=== PATIENT | female | born 1935 | race Caucasian/White ===

== ENCOUNTER 2017-07-13 19:50 | Inpatient (IN) | payer MEDICARE, OTHER ==
[~2017-07-13] VITALS: Ht 165.1 cm; Wt 78.3 kg
[~2017-07-13 19:50] MED LIST: AGGRENOX (D1 CAPSULE PO; AMIODARONE 200200 MG PO; COREG25 M1 PO; CORGARD40 MG PO; FISH OIL CONCEN1 SGL PO; FUROCOT40 MG PO; GLIPIZIDE 5MG TA5 MG PO; HYDRALAZINE HC100 MG PO; JANUMET 500 MG-1 TAB PO; LEVAQUIN500 MG PO; LEVOTHYROXINE0.15 MG PO; LIPITOR80 M1 PO; LISINOPRIL/HCTZ1 TA1 PO; LISINOPRIL40 MG PO; LORTAB 5/500 501 TAB PO; NORVASC 10MG. T10 MG PO; PRADAXA150 MG PO; SYNTHROID0.15 MG PO; VERAPAMIL ER240 MG PO; VYTORIN 10 MG-41 TAB PO; ZETIA10 MG PO
[2017-07-13 19:54] VITALS: BP 198/97
--- OUTSIDE RECORDS SUMMARY | 2017-07-13 20:07 | External Medical Summary Rpt | CCD ---
Author Author , DENISE WALKER Address Unknown Phone [email or web address] Purpose Continuity of Care Document - 05-01-2017 through 2016 Problems Code Diagnosis DOS Provider Status N95.9 UNSPECIFIED MENOPAUSAL AND PERIMENOPAU DENISE DISORDER R92.8 OTH ABN AND INCONCLUSIV E FINDINGS ON DX IMAGING OF BREAST
--- OUTSIDE RECORDS SUMMARY | 2017-07-13 20:07 | External Medical Summary Rpt | CCD ---
Author Author , DENISE WALKER Address Unknown Phone [email or web address] Purpose Continuity of Care Document - 05-01-2017 through 2016 Problems Code Diagnosis DOS Provider Status N95.9 UNSPECIFIED MENOPAUSAL AND PERIMENOPAU DENISE DISORDER R92.8 OTH ABN AND INCONCLUSIV E FINDINGS ON DX IMAGING OF BREAST
--- OUTSIDE RECORDS SUMMARY | 2017-07-13 20:07 | External Medical Summary Rpt | CCD ---
Demographics Preferred Language Luxembourgish Marital Status Unknown Hoahaoism Affiliation Unknown Race Unknown Ethnic Group Unknown Author Author , DENISE WALKER Address Unknown Phone Immunization No patient found.
--- OUTSIDE RECORDS SUMMARY | 2017-07-13 20:07 | External Medical Summary Rpt ---
Author Author DENISE Cohen, DENISE [employer] Organization [employer] Address Unknown Phone Unavailable Results Basic metabolic panel in Blood Observa Value Referen Units Interpr Notes Date tion ce etation Range Urea 7 - 18 mg/dL High No Sep 15 nitrogen informati 2017 [Mass/vol on in 12:35 PM ume] in source Serum or data Plasma Calcium 8.5 - mg/dL Normal No Sep 15 [Mass/vol 10.1 informati 2016 ume] in on in 12:35 PM Serum or source Plasma data Chloride 98 - 107 mmoL/L Normal No Sep 15 [Moles/vo informati 2017 lume] in on in 12:35 PM Serum or source Plasma data Carbon 21.0 - mmoL/L Normal No Sep 15 dioxide, 32.0 informati 2017 total on in 12:35 PM [Moles/vo source lume] in data Serum or Plasma Creatinin 0.55 - mg/dL High No Sep 15 e 1.02 informati 2017 [Mass/vol on in 12:35 PM ume] in source Serum or data Plasma Estimated 59- ML/MIN Low REFERENCE Sep 15 RANGE: 2017 glomerula >60 12:35 PM r ML/MIN/1. filtratio 73 SQUARE n rate METERSIf (GF this patient is -A merican, then multiply theresult by 1.210. Glucose 74 - 106 mg/dL High No Sep 15 [Mass/vol informati 2017 ume] in on in 12:35 PM Serum or source Plasma data Potassium 3.5 - 5.1 mmoL/L Normal No Sep 15 informati 2017 [Moles/vo on in 12:35 PM lume] in source Serum or data Plasma Sodium 136 - 145 mmoL/L Normal No Sep 15 [Moles/vo informati 2017 lume] in on in 12:35 PM Serum or source Plasma data Troponin I.cardiac [Mass/volume] in Serum or Plasma Observa Value Referen Units Interpr Notes Date tion ce etation Range Troponin 0.00 - ng/mL High 0.04 - Sep 15 I.cardiac 0.06 0.49 IS 2017 AN 12:35 PM [Mass/vol INDETERMI ume] in NANT Serum or ZONEAnd Plasma can be consisten t with the following diseases: Trauma Criticall y ill patients Qureshi >30% TBSACHF Hypothyro idism Amyloidos isHyperte nsion Myocardit is SepsisHyp otension Rhabdomyo lysis Vital exhaust.P ostop surgery Pulmonary embolism CVARenal failure Acute neurologi richie disease Atrial fib.
--- OUTSIDE RECORDS SUMMARY | 2017-07-13 20:07 | External Medical Summary Rpt ---
Author Author DENISE Cohen, DENISE [employer] Organization [employer] Address Unknown Phone Unavailable [...]
--- OUTSIDE RECORDS SUMMARY | 2017-07-13 20:07 | External Medical Summary Rpt | CCD ---
Demographics Preferred Language Bengali Marital Status Unknown Pentecostal Affiliation Unknown Race Unknown Ethnic Group Unknown Author Author , DENISE WALKER Address Unknown Phone Immunization No patient found.
--- OUTSIDE RECORDS SUMMARY | 2017-07-13 20:07 | External Medical Summary Rpt | CCD ---
Author Author [employer] Organization [employer] Address Unknown Phone Unavailable Purpose Continuity of Care Document - through 2016
[2017-07-13 20:13] LABS: LYMPH # 3.3 K/mm3 (0.7-4.5); LYMPH % 27.4 % (10-50.0)
[2017-07-13 20:33] LABS: BUN 37 mg/dL (7-18)
[2017-07-13 20:35] LABS: GFR (ESTIMATED) 27 ML/MIN (59-)
[2017-07-13 20:39] LABS: HEMOGLOBIN 11.6 g/dL (12.2-16.2)
--- NOTE | 2017-07-13 21:00 | Emergency Room Report ---
See Addendum History of Present Illness Time Seen by 1999 Presenting Problem in Triage Pt arrived:Walked Presenting Problem:PATIENT REPORTS CONSTANT MIDSTERNAL CHESTPAIN THAT GOES TO HER BACK. DENIES N/V. DENIES SOA. PATIENT REPORTS SHE HAS HAD PAIN FOR 2 HOURS. 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 N Clinical Suspician of Infection? N Mental Status: 1 - Regular (Normal Baseline) Sepsis Risk:Possible Sepsis Risk Have you (or family members/close friends) recently traveled outside the [place]? N If Yes, where/when: Have you had exposure to infectious disease within the past month? TB? Other? Specify: Source patient, RN notes reviewed, family, old records Exam Limitations no limitations Comment pt with acute onset of ant chest pain with rad to back which started about 1600 - Cardiac Chest Pain Chest pain indicative of cardiac Yes Timing/Duration 1-3 hours, gone now Severity/Quality moderate, dull Location central Chest Pain Radiation back Activities at Onset none Nitro Today/Relief 0.4 mg x 1, provided by ED, complete relief Aspirin Treatment Today 81 mg x 4, provided by ED Beta kendrick treatment today no beta kendrick taken Cardiac risk factors + cardiovascular disease, Diabetes, + family history, HTN controlled Prior Workup/Intervention CABG-vessel(s) Timing/Duration this evening Severity moderate ALLERGIES Coded Allergies: betamethasone (From CELESTONE) (07/13/17) cefuroxime (From CEFTIN) (07/13/17) dexamethasone (From DECADRON) (07/13/17) enoxaparin (From LOVENOX) (07/13/17) heparin (07/13/17) nitrofurantoin (From MACRODANTIN) (07/13/17) prednisone (07/13/17) Uncoded Allergies: PCN (07/13/17) Home Medications Reported Medications DABIGATRAN ETEXILATE MESYLATE (Pradaxa) 150 MG PO DAILY Carvedilol (Coreg) 25 MG PO BID Furosemide (Furocot) 40 MG PO BID Levothyroxine Sodium (Levothyroxine 0.15MG) 0.15 MG PO DAILY Glipizide (Glipizide 5MG) 5 MG PO DAILY ATORVASTATIN CALCIUM (Lipitor 80MG) 80 MG PO DAILY Amiodarone Hcl (Amiodarone 200MG) 200 MG PO DAILY AMLODIPINE BESYLATE (Norvasc) 5 MG PO DAILY Hydralazine Hcl (Hydralazine) 50 MG PO TID Ezetimibe (Zetia) 10 MG PO DAILY Lisinopril (Lisinopril 40MG) 40 MG PO DAILY History Medical History General CAD? No Angina: Yes [place]: Yes Hypertension? Yes Hyperlipidemia? Yes CHF? No DVT? No PE? No COPD? No Asthma? No Anemia? No GERD? No Gastric ulcers? No GI Bleed? No Hernia? No Thyroid Problems? Yes Hypothyroidism? No CVA? Yes Seizures? No Diabetes? Yes Insulin Dependent: No Insulin Pump: No Home FSBS? Yes Renal Insuffiency? No End Stage Renal Disease? No UTI? No Stones? No BPH? No GB Disease: No Nephritic Syndrome? No Asplenia? No Hepatitis? No Sickle Cell Disease? No Arthritis? No Migraines? No Cataracts? Yes Glaucoma? No MRSA? No HIV? No TB? No Anxiety? No Depression? No Cancer? No More? No Immunization Hx DT/Tetanus > 10 YRS Flu NEVER Pneumonia REFUSES Surgical Hx Previous Surgery?Y APPENDECTOMY RT HAND THUMB SURGERY TONSILLECTOMY R KNEE SURGERY Coronary Artery Bypass Family History Family Hx Diabetes No CAD Yes Hypertension Yes Hyperlipidemia No Cancer No TB No Social History Smoking Hx Smoker: Never Smoker Tobacco: No Alcohol Alcohol: No Drugs none Review of Systems All Other Systems Reviewed and Negative Constitutional denies fever Eyes denies drainage ENT denies: ear discharge, epistaxis, throat pain. Respiratory denies cough, denies shortness of breath, denies wheezing Cardiovascular see HPI, chest pain, denies palpitations, denies syncope Gastrointestinal denies abdominal pain, denies diarrhea, denies vomiting Genitourinary denies: dysuria, frequency, hesitancy, hematuria. Musculoskeletal denies back pain, denies joint pain, denies joint swelling, denies neck pain Skin denies rash Psychiatric/Neurological denies headache, denies seizure Physical Exam Vital Signs Vital Signs Date Time Temp Pulse Resp B/P Pulse O2 O2 Flow FiO2 Ox Delivery Rate 07/13 2256 98.0 85 18 189/76 95 07/13 2200 98.3 85 18 171/78 94 07/139 97 16 144/75 96 07/13 2118 89 16 168/100 94 07/13 2117 16 07/13 2048 98.3 100 20 155/75 93 07/13 1954 97.6 110 20 198/97 99 - WBC >12,000 or <4,000 or 10% bands? 2 or more SIRS Criteria Met? B/P:155/75 MAP:130 Creatinine >2.0? UA output<0.5ml/kg/hr for 2 hrs? Platelet count >100,000? Lactate >2.0mmol/1? INR >1.2 or PTT > than 60 sec? Evidence of Organ Dysfunction? Provider documented clinical suspician of infection? N Sepsis Criteria Count: 2 Sepsis Risk: Possible Sepsis Risk General Appearance no apparent distress Eye Exam - bilateral eye PERRL, bilateral eye EOMI Ear, Nose, Throat normal ENT inspection Neck supple Respiratory Status No: respiratory distress. Lung Sounds bilateral: lungs clear. 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 No Results/Orders Laboratory Tests 07/13/172199: Troponin I 0.15 H 07/13/171954: Lipase 312 07/13/171954: Sodium 141, Potassium 4.0, Chloride 103, Carbon Dioxide 31, BUN 37 H, Creatinine 1.8 H, Estimated Creat Clear 31 L, Estimated GFR (MDRD) 27 L, Glucose 329 H, Calcium 9.8, Total Bilirubin 1.0, AST 17, ALT 16, Alkaline Phosphatase 151 H, Creatine Kinase 32, CK-MB (CK-2) Rel Index 1.6, CK and CKMB Interp < 0.5, Troponin I 0.16 H, Total Protein 7.1, Albumin 4.2, Globulin 2.9, Albumin/Globulin Ratio 1.4, WBC 11.9 H, RBC 4.22, Hgb 11.6 L, Hct 35.9 L, MCV 85.0, RDW 13.4, Plt Count 186, MPV 8.5, Gran % 67.0, Gran # 8.0 H, Lymphocytes % 27.4, Monocytes % 3.8, Eosinophils % 1.4, Basophils % 0.4, Lymphocytes # 3.3, Monocytes # 0.5, Eosinophils # 0.2, Basophils # 0.1, PUBS MCHC 32.5, MCH 27.6 Current Medication Orders Sig/Mike Start time Last Medication Dose Route Stop Time Status Admin Nitroglycerin 1 IN ONCE ONE 07/13 2130 DC 07/13 TP 07/13 Nitroglycerin 0 .STK-MED ONE 07/13 2129 DC .ROUTE Nitroglycerin 0 .STK-MED ONE 07/13 2116 DC SL Nitroglycerin 0.4 MG ONCE ONE 07/13 2115 DC 07/13 SL 07/13 Ondansetron HCl 4 MG ONCE ONE 07/13 2030 DC 07/13 IV 07/13 Ondansetron HCl 0 .STK-MED ONE 07/13 2025 DC .ROUTE Aspirin 324 MG ONCE ONE 07/13 2015 DC 07/13 PO 07/13 2016 2007 Aspirin 0 .STK-MED ONE 07/13 2005 DC .ROUTE Sodium Chloride 10 ML PRN PRN 07/13 2000 AC 07/13 IV 07/14 1958 2007 Orders Procedure Date/time Status TROPONIN I 07/13 2150 Complete LIPASE 07/13 2111 [facility] 07[facility]13 1959 Active ELECTROCARDIOGRAM REQUEST 07/13 1959 Active IV SALINE LOCK 07/13 1959 Active VP LAB 07/13 1959 Active CBC WITH AUTO DIFF 07/13 1959 Complete CARDIAC ENZYMES 07/13 1959 Complete CHEM 12 PROFILE 07/13 1959 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 ST/Twave chgs XRAY/CT/US XRAY/CT/US XRAY chest XR interpretation by reviewed by me Xray Results abnormal (cm) GUERITA Score for N-Stemi/Angina GUERITA N-STEMI SCORE GUERITA N-STEMI SCORE Response Value Age of patient 65 yrs or more 1 Number of risk factors for CAD Presence of 3 or more 1 Prior coronary artery stenosis (seen in angiography) Less than 50% 0 ST-Segment deviation on ECG (>1 min) Absent 0 Prior aspirin intake ASA intake in last 7 days 1 Severe anginal chest pain No or 1 episode in 24h 0 Elevated cardiac markers(CK-MB or troponin) Present 1 Total 4 Risk Stratification 3-4= Medium Risk Patients Departure Departure Time of Disposition 4483 Disposition Still a Patient Clinical Impression Primary Impression: Chest pain Qualifiers: Chest pain type: precordial pain Qualified Code: R07.2 - Precordial pain Secondary Impressions: A-fib Qualifiers: Atrial fibrillation type: chronic Qualified Code: I48.2 - Chronic atrial fibrillation Renal insufficiency Condition STABLE Referrals Roc Grover MD (Family) discussed with dr grover ED Critical Care Critical Care No at [id number]
--- NOTE | 2017-07-13 21:00 | Emergency Room Report ---
See Addendum History of Present Illness Time Seen by 1999 Presenting Problem in Triage Pt arrived:Walked Presenting Problem:PATIENT REPORTS CONSTANT MIDSTERNAL CHESTPAIN THAT GOES TO HER BACK. DENIES N/V. DENIES SOA. PATIENT REPORTS SHE HAS HAD PAIN FOR 2 HOURS. 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 N Clinical Suspician of Infection? N Mental Status: 1 - Regular (Normal Baseline) Sepsis Risk:Possible Sepsis Risk Have you (or family members/close friends) recently traveled outside the [place]? N If Yes, where/when: Have you had exposure to infectious disease within the past month? TB? Other? Specify: Source patient, RN notes reviewed, family, old records Exam Limitations no limitations Comment pt with acute onset of ant chest pain with rad to back which started about 1600 - Cardiac Chest Pain Chest pain indicative of cardiac Yes Timing/Duration 1-3 hours, gone now Severity/Quality moderate, dull Location central Chest Pain Radiation back Activities at Onset none Nitro Today/Relief 0.4 mg x 1, provided by ED, complete relief Aspirin Treatment Today 81 mg x 4, provided by ED Beta kendrick treatment today no beta kendrick taken Cardiac risk factors + cardiovascular disease, Diabetes, + family history, HTN controlled Prior Workup/Intervention CABG-vessel(s) Timing/Duration this evening Severity moderate ALLERGIES Coded Allergies: betamethasone (From CELESTONE) (07/13/17) cefuroxime (From CEFTIN) (07/13/17) dexamethasone (From DECADRON) (07/13/17) enoxaparin (From LOVENOX) (07/13/17) heparin (07/13/17) nitrofurantoin (From MACRODANTIN) (07/13/17) prednisone (07/13/17) Uncoded Allergies: PCN (07/13/17) Home Medications Reported Medications DABIGATRAN ETEXILATE MESYLATE (Pradaxa) 150 MG PO DAILY Carvedilol (Coreg) 25 MG PO BID Furosemide (Furocot) 40 MG PO BID Levothyroxine Sodium (Levothyroxine 0.15MG) 0.15 MG PO DAILY Glipizide (Glipizide 5MG) 5 MG PO DAILY ATORVASTATIN CALCIUM (Lipitor 80MG) 80 MG PO DAILY Amiodarone Hcl (Amiodarone 200MG) 200 MG PO DAILY AMLODIPINE BESYLATE (Norvasc) 5 MG PO DAILY Hydralazine Hcl (Hydralazine) 50 MG PO TID Ezetimibe (Zetia) 10 MG PO DAILY Lisinopril (Lisinopril 40MG) 40 MG PO DAILY History Medical History General CAD? No Angina: Yes [place]: Yes Hypertension? Yes Hyperlipidemia? Yes CHF? No DVT? No PE? No COPD? No Asthma? No Anemia? No GERD? No Gastric ulcers? No GI Bleed? No Hernia? No Thyroid Problems? Yes Hypothyroidism? No CVA? Yes Seizures? No Diabetes? Yes Insulin Dependent: No Insulin Pump: No Home FSBS? Yes Renal Insuffiency? No End Stage Renal Disease? No UTI? No Stones? No BPH? No GB Disease: No Nephritic Syndrome? No Asplenia? No Hepatitis? No Sickle Cell Disease? No Arthritis? No Migraines? No Cataracts? Yes Glaucoma? No MRSA? No HIV? No TB? No Anxiety? No Depression? No Cancer? No More? No Immunization Hx DT/Tetanus > 10 YRS Flu NEVER Pneumonia REFUSES Surgical Hx Previous Surgery?Y APPENDECTOMY RT HAND THUMB SURGERY TONSILLECTOMY R KNEE SURGERY Coronary Artery Bypass Family History Family Hx Diabetes No CAD Yes Hypertension Yes Hyperlipidemia No Cancer No TB No Social History Smoking Hx Smoker: Never Smoker Tobacco: No Alcohol Alcohol: No Drugs none Review of Systems All Other Systems Reviewed and Negative Constitutional denies fever Eyes denies drainage ENT denies: ear discharge, epistaxis, throat pain. Respiratory denies cough, denies shortness of breath, denies wheezing Cardiovascular see HPI, chest pain, denies palpitations, denies syncope Gastrointestinal denies abdominal pain, denies diarrhea, denies vomiting Genitourinary denies: dysuria, frequency, hesitancy, hematuria. Musculoskeletal denies back pain, denies joint pain, denies joint swelling, denies neck pain Skin denies rash Psychiatric/Neurological denies headache, denies seizure Physical Exam Vital Signs Vital Signs Date Time Temp Pulse Resp B/P Pulse O2 O2 Flow FiO2 Ox Delivery Rate 07/13 2256 98.0 85 18 189/76 95 07/13 2200 98.3 85 18 171/78 94 07/139 97 16 144/75 96 07/13 2118 89 16 168/100 94 07/13 2117 16 07/13 2048 98.3 100 20 155/75 93 07/13 1954 97.6 110 20 198/97 99 - WBC >12,000 or <4,000 or 10% bands? 2 or more SIRS Criteria Met? B/P:155/75 MAP:130 Creatinine >2.0? UA output<0.5ml/kg/hr for 2 hrs? Platelet count >100,000? Lactate >2.0mmol/1? INR >1.2 or PTT > than 60 sec? Evidence of Organ Dysfunction? Provider documented clinical suspician of infection? N Sepsis Criteria Count: 2 Sepsis Risk: Possible Sepsis Risk General Appearance no apparent distress Eye Exam - bilateral eye PERRL, bilateral eye EOMI Ear, Nose, Throat normal ENT inspection Neck supple Respiratory Status No: respiratory distress. Lung Sounds bilateral: lungs clear. 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 No Results/Orders Laboratory Tests 07/13/172199: Troponin I 0.15 H 07/13/171954: Lipase 312 07/13/171954: Sodium 141, Potassium 4.0, Chloride 103, Carbon Dioxide 31, BUN 37 H, Creatinine 1.8 H, Estimated Creat Clear 31 L, Estimated GFR (MDRD) 27 L, Glucose 329 H, Calcium 9.8, Total Bilirubin 1.0, AST 17, ALT 16, Alkaline Phosphatase 151 H, Creatine Kinase 32, CK-MB (CK-2) Rel Index 1.6, CK and CKMB Interp < 0.5, Troponin I 0.16 H, Total Protein 7.1, Albumin 4.2, Globulin 2.9, Albumin/Globulin Ratio 1.4, WBC 11.9 H, RBC 4.22, Hgb 11.6 L, Hct 35.9 L, MCV 85.0, RDW 13.4, Plt Count 186, MPV 8.5, Gran % 67.0, Gran # 8.0 H, Lymphocytes % 27.4, Monocytes % 3.8, Eosinophils % 1.4, Basophils % 0.4, Lymphocytes # 3.3, Monocytes # 0.5, Eosinophils # 0.2, Basophils # 0.1, PUBS MCHC 32.5, MCH 27.6 Current Medication Orders Sig/Mike Start time Last Medication Dose Route Stop Time Status Admin Nitroglycerin 1 IN ONCE ONE 07/13 2130 DC 07/13 TP 07/13 Nitroglycerin 0 .STK-MED ONE 07/13 2129 DC .ROUTE Nitroglycerin 0 .STK-MED ONE 07/13 2116 DC SL Nitroglycerin 0.4 MG ONCE ONE 07/13 2115 DC 07/13 SL 07/13 Ondansetron HCl 4 MG ONCE ONE 07/13 2030 DC 07/13 IV 07/13 Ondansetron HCl 0 .STK-MED ONE 07/13 2025 DC .ROUTE Aspirin 324 MG ONCE ONE 07/13 2015 DC 07/13 PO 07/13 2016 2007 Aspirin 0 .STK-MED ONE 07/13 2005 DC .ROUTE Sodium Chloride 10 ML PRN PRN 07/13 2000 AC 07/13 IV 07/14 1958 2007 Orders Procedure Date/time Status TROPONIN I 07/13 2150 Complete LIPASE 07/13 2111 Complete 12 LEAD EKG-[facility] (INITIAL) 07/13 1959 Active ELECTROCARDIOGRAM REQUEST 07/13 1959 Active IV SALINE LOCK 07/13 1959 Active 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 ST/Twave chgs XRAY/CT/US XRAY/CT/US XRAY chest XR interpretation by reviewed by me Xray Results abnormal (cm) GUERITA Score for N-Stemi/Angina GUERITA N-STEMI SCORE GUERITA N-STEMI SCORE Response Value Age of patient 65 yrs or more 1 Number of risk factors for CAD Presence of 3 or more 1 Prior coronary artery stenosis (seen in angiography) Less than 50% 0 ST-Segment deviation on ECG (>1 min) Absent 0 Prior aspirin intake ASA intake in last 7 days 1 Severe anginal chest pain No or 1 episode in 24h 0 Elevated cardiac markers(CK-MB or troponin) Present 1 Total 4 Risk Stratification 3-4= Medium Risk Patients Departure Departure Time of Disposition 9193 Disposition Still a Patient Clinical Impression Primary Impression: Chest pain Qualifiers: Chest pain type: precordial pain Qualified Code: R07.2 - Precordial pain Secondary Impressions: A-fib Qualifiers: Atrial fibrillation type: chronic Qualified Code: I48.2 - Chronic atrial fibrillation Renal insufficiency Condition STABLE Referrals Roc Grover MD (Family) discussed with dr grover ED Critical Care Critical Care No at [phone]
--- NOTE | 2017-07-13 22:25 | RADIOLOGY REPORT PS360 ---
CHEST-PORTABLE Ordering Physician: Can Chambers MD Patient Age: 81 years: Female HISTORY: CPAP portable TECHNIQUE: Chest AP portable COMPARISON : Previous 04/30/2016 PA and lateral chest. Also 2011 PCXR CXR FINDINGS Cardiomegaly.. Sternotomy. Mild chronic changes bilaterally with slight coarsening markings. But no focal infiltrate or pneumonia. No pleural effusion. No pneumothorax. No additional CHF.. Guillermina and mediastinal structures unremarkable. Chest wall unremarkable. IMPRESSION: . Stable chest. Nothing definitely acute Generous cardiomegaly. CABG again noted Mild chronic changes
--- OUTSIDE RECORDS SUMMARY | 2017-07-13 23:12 | External Medical Summary Rpt | CCD ---
Author Author , DENISE WALKER Address Unknown Phone [email or web address] Purpose Continuity of Care Document - 05-01-2017 through 2016 Problems Code Diagnosis DOS Provider Status N95.9 UNSPECIFIED MENOPAUSAL AND PERIMENOPAU DENISE DISORDER R92.8 OTH ABN AND INCONCLUSIV E FINDINGS ON DX IMAGING OF BREAST
--- OUTSIDE RECORDS SUMMARY | 2017-07-13 23:12 | External Medical Summary Rpt | CCD ---
Author Author , DENISE WALKER Address Unknown Phone [email or web address] Purpose Continuity of Care Document - 05-01-2017 through 2016 Problems Code Diagnosis DOS Provider Status N95.9 UNSPECIFIED MENOPAUSAL AND PERIMENOPAU DENISE DISORDER R92.8 OTH ABN AND INCONCLUSIV E FINDINGS ON DX IMAGING OF BREAST
--- OUTSIDE RECORDS SUMMARY | 2017-07-13 23:13 | External Medical Summary Rpt | CCD ---
Demographics Preferred Language Lao Marital Status Unknown Denominational Affiliation Unknown Race Unknown Ethnic Group Unknown Author Author , DENISE WALKER Address Unknown Phone Immunization Unable to retrieve immunization data due to connection failure with Immunization Registry. Please try again later.
--- OUTSIDE RECORDS SUMMARY | 2017-07-13 23:13 | External Medical Summary Rpt | CCD ---
Demographics Preferred Language Wolof Marital Status Unknown Presybeterian Affiliation Unknown Race Unknown Ethnic Group Unknown Author Author , DENISE WALKER Address Unknown Phone Immunization Unable to retrieve immunization data due to connection failure with Immunization Registry. Please try again later.
--- OUTSIDE RECORDS SUMMARY | 2017-07-13 23:14 | External Medical Summary Rpt ---
Author Author DENISE Cohen, DENISE [facility] [employer] Address Unknown Phone Unavailable Results Troponin I.cardiac [Mass/volume] in Serum or Plasma Observa Value Referen Units Interpr Notes Date tion ce etation Range Troponin 0.00 - ng/mL High 0.04 - Jul 13 I.cardiac 0.06 0.49 IS 2017 AN 10:00 PM [Mass/vol INDETERMI ume] in NANT Serum or ZONEAnd Plasma can be consisten t with the following diseases: Trauma Criticall y ill patients Qureshi >30% TBSACHF Hypothyro idism Amyloidos isHyperte nsion Myocardit is SepsisHyp otension Rhabdomyo lysis Vital exhaust.P ostop surgery Pulmonary embolism CVARenal failure Acute neurologi richie disease Atrial fib. Lipase [Enzymatic activity/volume] in Serum or Plasma Observa Value Referen Units Interpr Notes Date tion ce etation Range Lipase 73 - 393 U/L Normal No Jul 13 [Enzymati informati 2016 7:55 c on in PM activity/ source volume] data in Serum or Plasma CBC W Auto Differential panel in Blood Observa Value Referen Units Interpr Notes Date ti ce etation Range Basophils 0 - 0.2 K/MM3 Normal No Jul 13 inform2016 7:55 [#/volume on in PM ] in source Blood by data Automated count Basophils 0.1 - 2.0 % Normal No Jul 13 informati 2016 7:55 leukocyte on in PM s in source Blood by data Automated count Eosinophi 0.0 - 0.4 K/mm3 Normal No Jul 13 ls informati 2016 7:55 [#/volume on in PM ] in source Blood by data Automated count Eosinophi 0.1 - % Normal No Jul 13 ls/ 12.0 informati 2016 7:55 leukocyte on in PM s in source Blood by data Automated count Granulocy 1.8 - 7.8 K/mm3 High No Jul 13 dariusz informati 2016 7:55 [#/volume on in PM ] in source Blood by data Automated count Granulocy 37.0 - % Normal No Jul 13 dariusz/100 80.0 informati 2017 7:55 leukocyte on in PM s in source Blood by data Automated count Hematocri 37.0 - % Low No Jul 13 t [Volume 47.0 informati 2016 7:55 on in PM Fraction] source of Blood data Hemoglobi 12.2 - g/dL Low Jul 13 n 16.2 informati 2017 7:55 [Mass/vol on in PM ume] in source Blood data Lymphocyt 0.7 - 4.5 K/mm3 Normal Jul 13 es informati 2016 7:55 [#/volume on in PM ] in source Unspecifi data ed specimen by Automated count Lymphocyt 10 - 50.0 % Normal No Jul 13 es informati 2016 7:55 [#/volume on in PM ] in source Unspecifi data ed specimen by Automated count Erythrocy 27 - 31.2 pg Normal Jul 13 te mean informati 2016 7:55 corpuscul on in PM ar source hemoglobi data n [Entitic mass] Erythrocy 31.8 - g/dl Normal Jul 13 te mean 35.4 informati 2016 7:55 corpuscul on in PM ar source hemoglobi data n concentra tion [Mass/vol ume] by Automated count Erythrocy 82.2 - fl Normal No Jul 13 te mean 97.8 informati 2016 7:55 corpuscul on in PM ar volume source [Entitic data volume] by Automated count Monocytes 0.1 - 1.0 K/mm3 Normal Jul 13 informati 2016 7:55 [#/volume on in PM ] in source Blood by data Automated count Monocytes 1.7 - 9.3 % Normal No Jul 13 / informati 2016 7:55 leukocyte on in PM s in source Blood by data Automated count Platelet 7.4 - fl Normal No Jul 13 mean 10.4 informati 2017 7:55 volume on in PM [Entitic source volume] data in Blood by Automated count Platelets 142 - 424 K/mm3 Normal Jul 13 informati 2016 7:55 [#/volume on in PM ] in source Blood data Erythrocy 4.2 - 5.4 M/mm3 Normal No Jul 13 dariusz informati 2017 7:55 [#/volume on in PM ] in source Amniotic data fluid Erythrocy 11.5 - % Normal Jul 13 te 17.5 informati 2016 7:55 distribut on in PM ion width source [Entitic data volume] by Automated count Leukocyte 4.8 - K/MM3 High No Jul 13 s 10.8 informati 2017 7:55 [#/volume on in PM ] in source Blood data Basic metabolic panel in Blood Observa Value Referen Units Interpr Notes Date tion ce etation Range Urea 7 - 18 mg/dL High No Sep 15 nitrogen informati 2016 [Mass/vol on in 12:35 PM ume] in [...] mg/dL High No Sep 15 e 1.02 inform2016 [Mass/vol on in 12:35 PM ume] in [...] - 5.1 mmoL/L Normal No Sep 15 inform2016 [Moles/vo on in 12:35 PM lume] in [...]
--- OUTSIDE RECORDS SUMMARY | 2017-07-13 23:14 | External Medical Summary Rpt ---
Author Author DENISE Cohen, DENISE [employer] Organization [employer] Address Unknown Phone Unavailable [...]
[2017-07-14] VITALS (8 sets, daily range): BP systolic 122–155; BP diastolic 63–98
[2017-07-14 06:07] LABS: HEMOGLOBIN 11.2 g/dL (12.2-16.2); LYMPH # 2.9 K/mm3 (0.7-4.5); LYMPH % 17.7 % (10-50.0)
[2017-07-14 06:28] LABS: BUN 35 mg/dL (7-18)
[2017-07-14 06:30] LABS: GFR (ESTIMATED) 33 ML/MIN (59-)
[2017-07-14 08:01] LABS: NEUTROPHILS 77 % (42-76)
--- NOTE | 2017-07-14 08:29 | PHARMACY CLINIC NOTE ---
Patient Demographics Patient Demographics Admission date: 07/14/17 Date: 07/14/17 Time: 0823 Allergies Coded Allergies: betamethasone (From CELESTONE) (07/13/17) cefuroxime (From CEFTIN) (07/13/17) dexamethasone (From DECADRON) (07/13/17) enoxaparin (From LOVENOX) (07/13/17) heparin (07/13/17) nitrofurantoin (From MACRODANTIN) (07/13/17) prednisone (07/13/17) Uncoded Allergies: PCN (07/13/17) HEIGHT- FT: 5 IN: 5.00 K.274 VTE General Information Labs: Laboratory Tests 07/14 07/13 0530 1955 Hematology Hgb (12.2 - 16.2 g/dL) 11.2 L 11.6 L Hct (37.0 - 47.0 %) 34.5 L 35.9 L Plt Count (142 - 424 K/mm3) 174 186 Disclaimer The following section includes nursing documentation that has been pulled in for pharmacy review. Patient's VTE score: 2 Patient's VTE Risk: VERY LOW RISK Clinical trial participant? No VTE prophylaxis [id number] VTE prophylaxis ordered? Yes Type of prophylaxis/treatment: AIDE at 0828
--- NOTE | 2017-07-14 09:38 | HISTORY AND PHYSICAL REPORT ---
See Addendum History and Physical (FCA) Date of admission: 07/14/17 Chief complaint: chest pain History: History of Present Illness: Ms Mercado is an 81 year old female with a history of CAD, T2DM, CVA, HTN, Hypothyroidism, macular degeneration, and atrial fib who presented to [facility] ER with severe right anterior chest and upper abdominal pain. She states the pain started yesterday PM. She did not vomit and has had no diarrhea. She denies SOB. Her heart always skips around with her atrial fib. With evaluation in the ER Troponin's were slight elevated. Pain was releived with NTG. She was admitted for further evaluation and treatment with precordial CP. This AM she remains comfortable without CP and SOB. She has eaten a little breakfast. She slept little. She notes that she has had GERD in the recent past and was given Nexium which she did not take because she had no further problems. Past Medical History: Medical History: CAD? Yes Angina: Yes PA: Yes Hypertension? Yes Hyperlipidemia? Yes CHF? Yes DVT? No PE? No COPD? No Asthma? No Anemia? Yes GERD? No Gastric ulcers? No GI Bleed? No Hernia? No Thyroid Problems? Yes Hypothyroidism? Yes CVA? Yes Seizures? No Diabetes? Yes Insulin Dependent: No Insulin Pump: No Home FSBS? Yes Renal Insuffiency? No UTI? No Stones? No BPH? No GB Disease: No Nephritic Syndrome? No Asplenia? No Hepatitis? No Sickle Cell Disease? No Arthritis? No Migraines? No Cataracts? Yes Glaucoma? No MRSA? No HIV? No TB? No Anxiety? No Depression? No Cancer? No More? No Additional hx: Macular degeneration Atrial fib Surgical history: Previous Surgery?Y APPENDECTOMY RT HAND THUMB SURGERY TONSILLECTOMY R KNEE SURGERY Coronary Artery Bypass Medications: Reported Medications Glipizide (Glipizide 5MG) 5 MG PO BID Hydralazine Hcl (Hydralazine) 100 MG PO TID Lisinopril (Lisinopril 40MG) 40 MG PO DAILY Rivaroxaban (Xarelto) 20 MG PO DAILY Terazosin Hcl (Terazosin) 5 MG PO QHS Colchicine 0.6 MG PO DAILY PRN FERROUS SULFATE (IRON) 65 MG PO DAILY Aspirin (Adult Low Dose Aspirin EC) 81 MG PO DAILY Febuxostat (Uloric) 40 MG PO DAILY LEVOTHYROXINE SOD (Synthroid) 0.1 MG PO DAILY Isosorbide Dinitrate 30 MG PO TID Cyanocobalamin/Folic Acid (Vitamin G25-Jamvu Acid Tablet) 1 EACH PO Carvedilol (Coreg) 25 MG PO BID Furosemide (Furocot) 40 MG PO BID Levothyroxine Sodium (Levothyroxine 0.15MG) 0.15 MG PO DAILY ATORVASTATIN CALCIUM (Lipitor 80MG) 80 MG PO DAILY AMLODIPINE BESYLATE (Norvasc) 5 MG PO DAILY Discontinued Reported Medications DABIGATRAN ETEXILATE MESYLATE (Pradaxa) 150 MG PO DAILY Amiodarone Hcl (Amiodarone 200MG) 200 MG PO DAILY Ezetimibe (Zetia) 10 MG PO DAILY Allergies: Coded Allergies: betamethasone (From CELESTONE) (07/13/17) cefuroxime (From CEFTIN) (07/13/17) dexamethasone (From DECADRON) (07/13/17) enoxaparin (From LOVENOX) (07/13/17) heparin (07/13/17) nitrofurantoin (From MACRODANTIN) (07/13/17) prednisone (07/13/17) Uncoded Allergies: PCN (07/13/17) Family History: Family history: Postive for: CAD, DM. Social History: Smoking Hx Tobacco: No Smoker: Never Smoker Type: N/A Packs/day: N/A Are you exposed to second hand Yes Alcohol: Alcohol: No Hx of Drug Use: Drug Use? No Patient's support system is: excellent Review of Systems: ENT No: ear ache, nasal congestion, sore throat. Cardiovascular Positive for: chest pain, palpitations. No: edema. Respiratory No: shortness of air, non-productive, productive cough (sputum). GI Positive for: GERD, abdominal pain, constipation. No: diarrhea, hematemeis, hematochezia, melena, nausea, vomitting. (female) No: frequency, hematuria. Neurological No: dizziness, headache, seizure, syncope. Musculoskeletal No: extremity pain, extremity swelling, joint pain. Physical Exam: Vital signs: Vital Signs Date Time Temp Pulse Resp B/P Pulse O2 O2 Flow FiO2 Ox Delivery Rate 07/14 0910 97.8 93 20 155/97 97 07/14 0830 97.8 93 20 155/97 97 ROOM AIR 07/14 0432 98.3 111 20 145/63 95 ROOM AIR 07/14 0105 2 07/14 0105 2 07/14 0105 95 ROOM AIR 2 07/14 0105 95 ROOM AIR 07/14 0102 93 07/14 0102 97.8 93 18 150/80 07/14 0102 95 ROOM AIR 07/14 0045 97.8 93 18 150/80 95 ROOM AIR 07/14 0028 98.0 91 18 203/91 98 07/14 0025 98.0 91 18 203/91 98 07/13 2256 98.0 85 18 189/76 95 07/13 2200 98.3 85 18 171/78 94 07/13 2149 97 16 144/75 96 07/13 2118 89 16 168/100 94 07/13 2117 16 07/13 2048 98.3 100 20 155/75 93 07/13 1954 97.6 110 20 198/97 99 1ST Vital Signs Result Date Time Pulse Ox 99 07/13 1954 B/P 198/97 07/13 1954 Temp 97.6 07/13 1954 Pulse 110 07/13 1954 Resp 20 07/13 1954 O2 Delivery ROOM AIR 07/14 0045 O2 Flow Rate 2 07/14 0105 Exam: General appearance: alert, active, no acute distress Eyes: anicteric ENT: mucous membranes moist, pharynx normal Neck: non-tender, no carotid bruit, full range of motion, lymphadenopathy ( absent), thyroid (normal) Cardiovascular: irregularly irregular Respiratory: clear to auscultation (bilat anterior and posterior) ABD: non-distended, soft, no guarding, bowel sounds present, tenderness (RUQ) Extremities: no peripheral edema Neuro: alert, oriented, speech clear Lab data: Labs: Laboratory Tests 07/14/17 0630: POC Glucose 359 *H 07/14/17 0530: Sodium 141, Potassium 4.0, Chloride 104, Carbon Dioxide 28, BUN 35 H, Creatinine 1.5 H, Estimated Creat Clear 36 L, Estimated GFR (MDRD) 33 L, Glucose 362 H, Calcium 9.6, Creatine Kinase 26, CK-MB (CK-2) Rel Index 1.9, CK and CKMB Interp < 0.5, Troponin I 0.15 H, WBC 16.0 H, RBC 4.05 L, Hgb 11.2 L , Hct 34.5 L, MCV 85.1, RDW 13.4, Plt Count 174, MPV 8.6, Gran % 77.3, Gran # 12.5 H, Total Counted 100, Lymphocytes % 17.7, Monocytes % 4.6, Eosinophils % 0.1, Basophils % 0.2, Neutrophils 77 H, Band Neutrophils 5, Lymphocytes (Manual ) 13, Lymphocytes # 2.9, Monocytes (Manual) 5, Monocytes # 0.7, Eosinophils # 0.0, Basophils # 0.0, Platelet Estimate NORMAL, PUBS MCHC 32.5, MCH 27.7 07/14/17 0305: Creatine Kinase 28, CK-MB (CK-2) Rel Index 1.8, CK and CKMB Interp < 0.5, Troponin I 0.16 H 07/13/172199: Troponin I 0.15 H 07/13/171954: Lipase 312 07/13/171954: Sodium 141, Potassium 4.0, Chloride 103, Carbon Dioxide 31, BUN 37 H, Creatinine 1.8 H, Estimated Creat Clear 31 L, Estimated GFR (MDRD) 27 L, Glucose 329 H, Calcium 9.8, Total Bilirubin 1.0, AST 17, ALT 16, Alkaline Phosphatase 151 H, Creatine Kinase 32, CK-MB (CK-2) Rel Index 1.6, CK and CKMB Interp < 0.5, Troponin I 0.16 H, Total Protein 7.1, Albumin 4.2, Globulin 2.9, Albumin/Globulin Ratio 1.4, WBC 11.9 H, RBC 4.22, Hgb 11.6 L, Hct 35.9 L, MCV 85.0, RDW 13.4, Plt Count 186, MPV 8.5, Gran % 67.0, Gran # 8.0 H, Lymphocytes % 27.4, Monocytes % 3.8, Eosinophils % 1.4, Basophils % 0.4, Lymphocytes # 3.3, Monocytes # 0.5, Eosinophils # 0.2, Basophils # 0.1, PUBS MCHC 32.5, MCH 27.6 Radiology results: Results: CXR 07/13/17 IMPRESSION: Stable chest. Nothing definitely acute Generous cardiomegaly. CABG again noted Mild chronic changes Diagnosis(es): 1. Renal insufficiency Status: Chronic 2. A-fib Status: Chronic 3. Chest pain Status: Acute 4. Abdominal pain, right upper quadrant Status: Acute 5. T2DM (type 2 diabetes mellitus) Status: Chronic 6. Hypothyroidism Status: Chronic 7. CAD (coronary artery disease) Status: Chronic Plan: RUQ US this AM; home meds updated at 1002
[2017-07-14] MEDS ORDERED: XARELTO20 MG PO (09:48)
[2017-07-14] MEDS ORDERED: TERAZOSIN5 MG PO (09:55)
[2017-07-14] MEDS ORDERED: COLCHICINE0.6 M4 PO (09:56)
[2017-07-14] MEDS ORDERED: NATURAL IRON65 MG PO (09:57)
[2017-07-14] MEDS ORDERED: ULORIC40 MG PO ×2 (09:58→13:48)
[2017-07-14] MEDS ORDERED: ADULT LOW DOSE81 MG PO (09:58)
[2017-07-14] MEDS ORDERED: LEVOTHYROXINE0.1 MG PO (09:58)
[2017-07-14] MEDS ORDERED: ISOSORBIDE DINI30 MG PO (09:59)
[2017-07-14] MEDS ORDERED: B-121000 MC1 PO (10:00)
[2017-07-14] MEDS ORDERED: XARELTO15 MG PO (13:50)
--- NOTE | 2017-07-14 16:24 | RADIOLOGY REPORT PS360 ---
US RUQ-(ABD LTD)1ORGAN/QUAD/FU Ordering Physician: Roc Moctezuma MD Patient Age: 81 years: Female HISTORY: RUQ abd painright upper quadrant pain. Chest pain. TECHNIQUE: ] RUQ ultrasound COMPARISON : Prior prior RUQ ultrasound 2011 CT chest 2016 FINDINGS : Pancreas.. No significant findings No focal lesion. No fluid collection. Hyperechoic throughout suggesting diffuse fatty change Liver... No lesions. No biliary ductal dilatation.. Unremarkable. Portal vein normal diameter normal direction flow. Common duct normal diameter at hilum of liver. 4.5 mm. Gallbladder. Large gallstone fundus of gallbladder measuring ~ 3.5 cm length X x 2 cm. Prominent diffuse wall thickening gallbladder measuring up to 5-6 mm. Also pericholecystic fluid surrounding gallbladder. Findings are compatible with cholecystitis.: Likely acute cholecystitis with this appearance. Clinical correlation required. Right kidney. No hydronephrosis. Normal size 8.6 cm length with adequate cortex. Small 7.2 mm cyst off mid cortex right kidney IMPRESSION Cholelithiasis. Large 3.5 x 2 cm gallstone in gallbladder. With prominent Cholecystitis. Prominent Diffuse wall thickening with pericholecystic fluid likely reflects acute cholecystitis.. Common duct normal diameter.
--- NOTE | 2017-07-14 22:27 | RADIOLOGY REPORT PS360 ---
PROCEDURE: 2-D M-mode and color Doppler study INDICATIONS FOR THE TEST: Chest pain + COPD Heart Murmur Tobacco Smoking Palpitations Fatigue Syncope Edema Hypertension+Diabetes Mellitus+ Rheumatic Fever SOB+FARLEY Obesity+Hyperlipidemia+ Family History HD Additional History CABG X6 2011 PATIENT INFORMATION HEIGHT: 64 WEIGHT:180 GENDER: Female B/P:110/74 2-D/M-MODE INTERPRETATION: 2-D MEASUREMENTS OBSERVED VALUES IN CMS Right Ventricular Dimension (RVDd) 3.2 Interventricular Septum (Thickness)(IVsd) 1.6 Left Ventricular Internal Dimensions(LVIDd) 4.0 Left Ventricular Posterior Wall (Thickness)(LVPWd) 1.2 Aortic Root 3.1 Aortic Cusp Separation 0.9 Left Atrial Dimensions (LAD) 5.9 2D 1. Left atrium is markedly enlarged, left ventricle is normal size, there is mild concentric left ventricular hypertrophy, visually estimated ejection fraction of 50-55% with no obvious regional wall motion abnormality, endocardial surface are somewhat poorly visualized. 2. The right atrium is moderately enlarged, right ventricle is mildly dilated with normal contractility. 3. The aortic valve is thickened and calcified with restriction the leaflet mobility. 4. The mitral valve has mitral annular calcification, which extends and both anterior and posterior mitral leaflet. 5. The tricuspid valve leaflets are minimally thickened. 6. The pulmonic valve is minimally thickened and fibrosed 7. No significant pericardial effusion noted. DOPPLER INTERROGATION: The maximum aortic out flow velocity is 2.6 m/s, resulting in a mean gradient across valve of 14 mmHg, this represents mild aortic stenosis, there is no significant aortic insufficiency seen. The mitral inflow velocity within normal range, there is no mitral stenosis, there is moderate mitral and moderate tricuspid regurgitation seen, calculated right ventricular systolic pressure is 55 mmHg consistent with moderate pulmonary hypertension. CONCLUSION: 1. Biatrial enlargement, normal left ventricular size, mild concentric left ventricular hypertrophy, visually estimated ejection fraction of 50-55% with no obvious regional wall motion abnormality, diastolic parameters are inconclusive. 2. Thickened and calcified aortic valve with mean gradient across valve of 14 mmHg represents mild aortic stenosis, there is no aortic insufficiency. 3. Moderate mitral and moderate tricuspid regurgitation, calculated right ventricular systolic pressure is 55 mmHg consistent with moderate pulmonary hypertension. 4. No significant pericardial effusion noted.
[2017-07-15] VITALS (14 sets, daily range): BP systolic 101–146; BP diastolic 35–68
--- NOTE | 2017-07-15 07:25 | CONSULT NOTE ---
See Addendum Standard Demographics Patient Demo Date of Consultation: 07/15/17 Referring Provider: Roc Moctezuma MD Reason for Consultation: gallbladder PRIMARY DIAGNOSIS: CHEST PAIN Allergies: Coded Allergies: betamethasone (From CELESTONE) (07/13/17) cefuroxime (From CEFTIN) (07/13/17) dexamethasone (From DECADRON) (07/13/17) enoxaparin (From LOVENOX) (07/13/17) heparin (07/13/17) nitrofurantoin (From MACRODANTIN) (07/13/17) prednisone (07/13/17) Uncoded Allergies: PCN (07/13/17) History of Present Illness Chief Complaint: Abdominal pain History of Present Illness: Patient is a pleasant 81-year-old white female with a prior history of coronary artery disease and myocardial infarction who underwent coronary artery bypass graft 6. She has a history of atrial fibrillation. She presented to the emergency department in the very late evening of 07/13/17 RIGHT upper quadrant and right-sided chest pain. Potential cardiac etiology was suspected initially. She she describes pain in the RIGHT upper quadrant and chest area. She states that over the past month she has had what she describes as "indigestion". After admission she underwent gallbladder ultrasound. This revealed findings of thickened gallbladder with very large gallstone and pericholecystic fluid consistent with acute calculus cholecystitis. Surgical consultation was obtained. Past Medical History Reports: CAD, congestive heart failure, hypertension, diabetes mellitus. Surgical History Previous Surgery?Y APPENDECTOMY RT HAND THUMB SURGERY TONSILLECTOMY R KNEE SURGERY Coronary Artery Bypass Allergies Coded Allergies: betamethasone (From CELESTONE) (07/13/17) cefuroxime (From CEFTIN) (07/13/17) dexamethasone (From DECADRON) (07/13/17) enoxaparin (From LOVENOX) (07/13/17) heparin (07/13/17) nitrofurantoin (From MACRODANTIN) (07/13/17) prednisone (07/13/17) Uncoded Allergies: PCN (07/13/17) Medications: Reported Medications Carvedilol (Coreg) 25 MG PO BID ATORVASTATIN CALCIUM (Lipitor 80MG) 80 MG PO QHS AMLODIPINE BESYLATE (Norvasc) 5 MG PO DAILY Hydralazine Hcl 100 MG PO TID Lisinopril (Lisinopril 40MG) 20 MG PO DAILY Terazosin Hcl (Terazosin) 5 MG PO QHS FERROUS SULFATE (IRON) 325 MG PO DAILY Isosorbide Dinitrate 30 MG PO TID Cyanocobalamin (Vitamin B-12) (B-12) 1,000 MCG PO DAILY Glipizide (Glipizide 5MG) 5 MG PO BID LEVOTHYROXINE SOD (Synthroid) 0.1 MG PO DAILY Aspirin (Adult Low Dose Aspirin EC) 81 MG PO BID Febuxostat (Uloric) 40 MG PO DAILY #30 TAB Rivaroxaban (Xarelto) 15 MG PO DAILY #90 TAB Furosemide (Furocot) 40 MG PO BID Discontinued Reported Medications DABIGATRAN ETEXILATE MESYLATE (Pradaxa) 150 MG PO DAILY Amiodarone Hcl (Amiodarone 200MG) 200 MG PO DAILY Ezetimibe (Zetia) 10 MG PO DAILY Additional medical history: Atrial fibrillation Prior myocardial infarction Hypothyroidism Smoking Hx Tobacco: No Smoker: Never Smoker Type: N/A Packs/day: N/A Are you/the child exposed to second-hand smoke: Yes Alcohol Alcohol: No Hx of Drug Use Drug Use? No Review of Systems Constitutional Positive for: chills, weak. Skin No: contusions. Immune/allergy No: anaphalaxis. Eyes No: vision loss. ENT No: hearing loss. Respiratory No: shortness of air. Cardiovascular Positive for: chest pain. GI Positive for: abdomen. (female) No: hematuria. Musculoskeletal No: extremity swelling. Heme No: bleeding. Neurological No: change in LOC. Physical Exam Exam General appearance no acute distress Respiratory clear to auscultation Cardiovascular normal heart sounds Abdomen soft Plan Plan: Patient has Acute calculus cholecystitis. Agree with antibiotics. Plan to recheck labs today. Needs cardiology disposition and risk assessment prior to consideration of surgery. Possible surgery today pending cardiology recommendations. at 0738
--- NOTE | 2017-07-15 07:52 | ACUTE CARE PROGRESS NOTE (QUA) ---
Progress Notes Subjective Date 07/15/17 Time 0740 Note Doing better; abdomen is just sore; no nausea or vomiting; Denies CP and SOB. Dr. Israel note reviewed and appreciated; awaiting cardiology clearance and may have surgery today; labs are pending Objective Exam General appearance: alert, active, no acute distress Cardiovascular: irregular rate & rhythm Respiratory: clear to auscultation (bilat anterior and posterior) ABD: bowel sounds present, sore RUQ Neuro: alert, oriented, speech clear Assessment/Plan Problem List 1. Renal insufficiency Status: Chronic 2. A-fib Status: Chronic 3. Chest pain Status: Acute 4. Abdominal pain, right upper quadrant Status: Acute 5. T2DM (type 2 diabetes mellitus) Status: Chronic 6. Hypothyroidism Status: Chronic 7. CAD (coronary artery disease) Status: Chronic Patient condition Improving Plan: await cardiac clearance for surgery today This inpt stay is expected to cross 2 MNs from start of care Yes (Elizabeth Palomino APRN) Assessment/Plan Problem List 1. Renal insufficiency Status: Chronic 2. A-fib Status: Chronic 3. Chest pain Status: Acute 4. Abdominal pain, right upper quadrant Status: Acute 5. T2DM (type 2 diabetes mellitus) Status: Chronic 6. Hypothyroidism Status: Chronic 7. CAD (coronary artery disease) Status: Chronic Comments: Patient seen and agree with above note. (Roc Moctezuma MD) at 0751 at 0821
[2017-07-15 08:02] LABS: LYMPH # 6.1 K/mm3 (0.7-4.5); LYMPH % 41.4 % (10-50.0)
[2017-07-15 08:04] LABS: HEMOGLOBIN 9.8 g/dL (12.2-16.2)
--- NOTE | 2017-07-15 12:23 | CONSULT NOTE ---
Standard Demographics Patient Demo Date of Consultation: 07/15/17 Referring Provider: Roc Moctezuma MD Reason for Consultation: Preop cardiology evaluation. PRIMARY DIAGNOSIS: Cholecystitis Problem list Problem list: 1. Acute calculus cholecystitis 2. CAD A. S/P 6v CABG 2010 B. Normal LV systolic function C. No symptoms of typical angina 3. Chronic Afib A. Rate control w/Carvedilol B. Chronic anticoag with reduced dose Xarelto (last taken the evening of July 12) 4. HTN 5. DM 6. CRI 7. HLD 8. Hypothyroidism 9. Heart valve disease A. Mild MR and TR on echo 04/2016 B. Calcified aortic valve leaflets with mild calcific aortic sclerosis w/o hemodynamically signficant on echo 04/2016 9. Bilateral carotid disease by duplex scan (no obstructive disease on carotid angiogram 2014) 10. Macular degeneration History of present illness: History of present illness: 81 yo female with multiple medical problems to include CAD, permanent Afib, HTN who presented to the ER 2 evenings ago for persistent pain in her RUQ and R chest with radiation into the back. No associated SOA, N/V. There was concern that her sxs might be of cardiac origin given her history and slight elevation in Troponin to 0.16 (indeterminant zone). However, the sxs were much different than the jaw and teeth pain that she had with her NJ prior to CABG. EKG on arrival showed afib, HR of 99 bpm, no acute ischemic changes. BP was elevated to 198/97 on arrival. Serial Troponins overnight showed no change (0.16, 0.15, 0.16, 0.15). Her sxs in the ER were relieved with SL NTG. She's had no more CP since admission but does remain tender in the RUQ. BP and HR are both much better than on arrival and now well within normal limits. She is comfortable but tired. Workup has revealed acute cholecystitis with a large gallstone. General surgery has recommended urgent surgery (today). Echo completed yesterday shows mild LVH, normal LVSF, EF 50-55%, no regional wall motion abns, biatrial enlargement, mild , moderate MR and TR, moderate PHTN. Past Medical History: General: Hypertension Yes CVA Yes Seizures No TB No COPD No Asthma No Diabetes Yes Insulin Dependent No Insulin Pump No Angina No NJ Yes Hyperlipidemia Yes Urinary No Cancer No Rheumatic H.D. No Ulcers No MRSA No GB Disease No Other THYROID Additional hx See the problem list. Past Surgical HX: Previous Surgery?Y APPENDECTOMY RT HAND THUMB SURGERY TONSILLECTOMY R KNEE SURGERY, Coronary Artery Bypass x 6 in 2010. Allergies Coded Allergies: Penicillins (07/16/17) betamethasone (From CELESTONE) (07/15/17) cefuroxime (From CEFTIN) (07/15/17) dexamethasone (From DECADRON) (07/15/17) enoxaparin (From LOVENOX) (07/15/17) heparin (07/15/17) nitrofurantoin (From MACRODANTIN) (07/15/17) prednisone (07/15/17) Home medications: Reported Medications Carvedilol (Coreg) 25 MG PO BID ATORVASTATIN CALCIUM (Lipitor 80MG) 80 MG PO QHS AMLODIPINE BESYLATE (Norvasc) 5 MG PO DAILY FERROUS SULFATE (IRON) 325 MG PO DAILY Isosorbide Dinitrate 30 MG PO TID Cyanocobalamin (Vitamin B-12) (B-12) 1,000 MCG PO DAILY Glipizide (Glipizide 5MG) 5 MG PO BID LEVOTHYROXINE SOD (Synthroid) 0.1 MG PO DAILY Aspirin (Adult Low Dose Aspirin EC) 81 MG PO BID Febuxostat (Uloric) 40 MG PO DAILY #30 TAB Rivaroxaban (Xarelto) 15 MG PO DAILY #90 TAB TERAZOSIN HCL (Terazosin HCl) 5 MG PO QHS HYDRALAZINE HCL (Hydralazine HCl) 100 MG PO TID LISINOPRIL (Lisinopril) 20 MG PO DAILY Furosemide (Furosemide 40MG) 40 MG PO DAILY Discontinued Reported Medications Hydralazine Hcl 100 MG PO TID Lisinopril (Lisinopril 40MG) 20 MG PO DAILY Terazosin Hcl (Terazosin) 5 MG PO QHS Furosemide (Furocot) 40 MG PO BID Current Medications: Current Medications Atorvastatin Calcium 80 MG QHS PO (CAN) Patient Own Medication 1 UNIT QHS PO Lactated Ringer's 1,000 ML .STK-MED ONE IV (DC) Amlodipine Besylate 5 MG DAILY PO (DC) Levothyroxine Sodium 0.1 MG DAILY PO (DC) Lisinopril 20 MG DAILY PO (DC) Patient Own Medication 0.5 UNIT DAILY PO Patient Own Medication 1 UNIT DAILY PO Patient Own Medication 0.5 UNIT DAILY PO Piperacillin Sod/Tazobactam Sod 0 .STK-MED ONE .ROUTE (DCr) Sodium Chloride 50 ML .STK-MED ONE IV (DC) Piperacillin Sod/Tazobactam Sod 2.25 GM Q6 IV (CKDr) Sodium Chloride 50 ML Sodium Chloride 50 ML .STK-MED ONE IV (DC) Piperacillin Sod/Tazobactam Sod 0 .STK-MED ONE .ROUTE (DCr) Patient Own Medication 1 UNIT BID PO Patient Own Medication 1 UNIT TID PO Patient Own Medication 1 UNIT QHS PO Insulin Human [rDNA origin] 0 .STK-MED ONE SC (DC) Patient Own Medication 1 UNIT TID PO Hydralazine HCl 100 MG TID PO (DC) Carvedilol 25 MG BID PO (DC) Diagnostic Test (Pha) 1 EACH W/MEALS&HS FS Insulin Human [rDNA origin] SEE ADMIN CRITERIA FOR LOW INTENSITY SS W/MEALS&HS SC Nitroglycerin 1 IN Q8 TP Acetaminophen 650 MG Q4HP PRN PO Ondansetron HCl 4 MG Q6HP PRN IV Sodium Chloride 1,000 ML .Q20H IV Sodium Chloride 10 ML PRN PRN IV Immunization HX DT/Tetanus Unknown Flu NEVER Pneumonia RECEIVED IN PAST TB Test in last year No Family history Family HX Diabetes No CAD Yes Hypertension Yes Hyperlipidemia No Cancer No TB No Social Hx: Smoking HX Tobacco No Type N/A Packs/day N/A Are you/the child exposed to second-hand smoke: Yes Alcohol Alcohol: No Hx of Drug Use Drug Use? No Patien't marital status is Patient's support system is excellent Review of systems: Constitutional No: no symptoms reported. Respiratory No: orthopnea, shortness of breath, SOB at rest. Cardiovascular see HPI, chest pain, No edema, palpitations, No syncope Gastrointestinal/Abdominal see HPI, abdominal pain Genitourinary No: no symptoms reported. Musculoskeletal No: no symptoms reported. Neurological No: no symptoms reported. Exam: Admission Vital Signs: 1ST Vital Signs Result Date Time Pulse Ox 99 07/13 1954 B/P 198/97 07/13 1954 Temp 97.6 07/13 1954 Pulse 110 07/13 1954 Resp 20 07/13 1954 O2 Delivery ROOM AIR 07/14 45 O2 Flow Rate 2 07/14 105 Last Vital Signs: Vital Signs Result Date Time Pulse Ox 94 07/15 1137 B/P 108/45 07/15 1137 O2 Delivery ROOM AIR 07/15 1137 Temp 98.2 07/15 1137 Pulse 89 07/15 1137 Resp 16 07/15 1137 O2 Flow Rate 2 07/14 010 Exam General appearance: alert, awake, no acute distress, well-developed Neck: no JVD Cardiovascular: Afib with controlled V rate. 3/6 systolic murmur at RUSB, 3/6 systolic murmur along the LSB with radiation to L axilla. Respiratory: aerating well, clear to auscultation, no respiratory distress ABD: non-distended, soft, no guarding, tenderness (RUQ) Extremities: pedal pulses (present), no pedal edema Musculoskeletal: No M/S tenderness while lying in bed. Neuro: intact, no deficit Laboratory data: Laboratory Tests EKG #1: : afib, controlled V rate, no acute ischemic changes. EKG #2: aflutter with variable AV conduction, mildly tachycardic, NS ST-T abns. Echo: mild LVH, normal LVSF, EF 50-55%, no regional wall motion abns, biatrial enlargement, mild , moderate MR and TR, moderate PHTN. 07/15/17 1146: POC Glucose 193 H 07/15/17 0719: Sodium 140, Potassium 3.8, Chloride 103, Carbon Dioxide 28, BUN 38 H, Creatinine 1.9 H, Estimated Creat Clear 28 L, Estimated GFR (MDRD) 25 L, Glucose 150 H, Calcium 8.7, Total Bilirubin 2.7 H, AST 12 L, ALT 11 L, Alkaline Phosphatase 75, Total Protein 5.7 L, Albumin 3.0 L, Globulin 2.7, Albumin/Globulin Ratio 1.1, PT 11.2, INR 1.04, WBC 14.8 H, RBC 3.46 L, Hgb 9.8 L, Hct 29.5 L, MCV 85.3, RDW 13.5, Plt Count 161, MPV 8.5, Gran % 53.2, Gran # 7.8, Lymphocytes % 41.4, Monocytes % 4.4, Eosinophils % 0.6, Basophils % 0.4, Lymphocytes # 6.1 H, Monocytes # 0.7, Eosinophils # 0.1, Basophils # 0.1, [facility] MCHC 33.2, MCH 28.3 07/15/17 0637: POC Glucose 153 H 07/14/17 2008: POC Glucose 203 H 07/14/17 1623: POC Glucose 177 H 07/14/17 1114: POC Glucose 300 H 07/14/17 0630: POC Glucose 359 *H 07/14/17 0530: Sodium 141, Potassium 4.0, Chloride 104, Carbon Dioxide 28, BUN 35 H, Creatinine 1.5 H, Estimated Creat Clear 36 L, Estimated GFR (MDRD) 33 L, Glucose 362 H, Calcium 9.6, Creatine Kinase 26, CK-MB (CK-2) Rel Index 1.9, CK and CKMB Interp < 0.5, Troponin I 0.15 H, WBC 16.0 H, RBC 4.05 L, Hgb 11.2 L , Hct 34.5 L, MCV 85.1, RDW 13.4, Plt Count 174, MPV 8.6, Gran % 77.3, Gran # 12.5 H, Total Counted 100, Lymphocytes % 17.7, Monocytes % 4.6, Eosinophils % 0.1, Basophils % 0.2, Neutrophils 77 H, Band Neutrophils 5, Lymphocytes (Manual ) 13, Lymphocytes # 2.9, Monocytes (Manual) 5, Monocytes # 0.7, Eosinophils # 0.0, Basophils # 0.0, Platelet Estimate NORMAL, PUBS MCHC 32.5, MCH 27.7 07/14/17 0305: Creatine Kinase 28, CK-MB (CK-2) Rel Index 1.8, CK and CKMB Interp < 0.5, Troponin I 0.16 H 07/13/172199: Troponin I 0.15 H 07/13/171954: Lipase 312 07/13/171954: Sodium 141, Potassium 4.0, Chloride 103, Carbon Dioxide 31, BUN 37 H, Creatinine 1.8 H, Estimated Creat Clear 31 L, Estimated GFR (MDRD) 27 L, Glucose 329 H, Calcium 9.8, Total Bilirubin 1.0, AST 17, ALT 16, Alkaline Phosphatase 151 H, Creatine Kinase 32, CK-MB (CK-2) Rel Index 1.6, CK and CKMB Interp < 0.5, Troponin I 0.16 H, Total Protein 7.1, Albumin 4.2, Globulin 2.9, Albumin/Globulin Ratio 1.4, WBC 11.9 H, RBC 4.22, Hgb 11.6 L, Hct 35.9 L, MCV 85.0, RDW 13.4, Plt Count 186, MPV 8.5, Gran % 67.0, Gran # 8.0 H, Lymphocytes % 27.4, Monocytes % 3.8, Eosinophils % 1.4, Basophils % 0.4, Lymphocytes # 3.3, Monocytes # 0.5, Eosinophils # 0.2, Basophils # 0.1, PUBS MCHC 32.5, MCH 27.6 Plan Assessment: 1. Acute calculus cholecystitis. 2. CAD, s/p CABG 2010. Stable, asymptomatic with no sxs to suggest angina. 3. Permanent Afib with controlled V response. 4. HTN. 5. CRI. Plan: She needs urgent gallbladder surgery. From a positive standpoint, she's had no angina sxs and her LVSF is normal. On a negative note, her history and limited activity make her at least an intermediate risk for CV complications during surgery. Given the situation with her gallbladder, we do not have time to do an ischemic workup which, if significantly abnormal, would require a left heart catherization, possible stenting, and dual antiplatelet therapy for a minimum of 1 month. We don't have time for all that. I have discussed all of this with Ms Mercado and her daughter Shira. They understand the CV risk involved, to include heart attack, stroke or even and are willing to proceed with urgent gallbladder surgery. 1. Continous telemetry monitoring postop. 2. 12 lead EKG postoperatively. 3. Other than Xarelto, ASA and Furosemide, all other CV meds should be continued throughout the perioperative period, especially her Atorvastatin and Carvedilol. 3. Xarelto and low-dose ASA should be resumed MARK postoperatively. 4. Will continue to follow. at 1000
--- NOTE | 2017-07-15 19:22 | Anesthesia Record ---
Anesthesia Record Part I Total IV fluids: 1500 EBL (ml): 10 Urine Output: 0 B/P: 112/52 % SaO2: 95 Pulse: 87 Resps: 16 Temp: 97.6 Patient is: Drowsy, Stable Stable to PACU at: 1915 at 1921
--- NOTE | 2017-07-15 19:22 | Anesthesia Record ---
Anesthesia Record Part II Discharge time: 1944 Destination: Second Floor PACU nurse assessment review? Yes Patient is: Stable Anesthesia complications? No at 1922
--- NOTE | 2017-07-15 19:26 | Operative Note ---
Surgeon/Diagnoses Surgeon/Technical Healthcare Consultant(s) Date of procedure: 07/15/17 Surgeon: Ole Israel Technical Healthcare Consultant(s): None Diagnoses Pre-op diagnosis: Acute cholecystitis Post-op diagnosis same Procedure Procedure Procedure: Laparoscopic cholecystectomy with intraoperative cholangiogram Indications: MONET FRANKLIN is a 81 year-old Female with a history of abdominal pain. She was admitted in the very late waning hours of 07/13/17 with RIGHT upper quadrant abdominal pain and chest pain. Initial concern was for possible cardiac etiology. This, however, was ruled out. She underwent gallbladder ultrasound yesterday which revealed findings of appreciable acute cholecystitis with large gallstone in the gallbladder with gallbladder wall thickening and pericholecystic fluid. She had a leukocytosis and low-grade fevers. Surgical consultation was ordered. Patient was started on Zosyn. By this morning she felt very well and was essentially asymptomatic. She was cleared for surgery by cardiology. Plan was made for cholecystectomy. Of note, she had elevation of her bilirubin to 2.7 today in consideration was for possible intraoperative cholangiogram. Findings: She had a severely inflamed markedly distended gallbladder with gallbladder wall thickening and significant edema and pericholecystic fluid. There were inflammatory adhesions around the gallbladder and liver consistent with severe acute cholecystitis. Procedure Description: Consent was obtained and patient was taken to the operating room. She was given preoperative intravenous antibiotics. In the operating room she was placed in a supine position. Gen. anesthesia was induced via endotracheal tube. Abdomen was prepped and draped in the standard surgical fashion. Subumbilical skin incision was made. Dissection was carried down bluntly to the fascia. She had very attenuated fascia and the peritoneum was easily entered. Therefore plan was made for open Gonzalez technique. A couple of Vicryl sutures were placed and while performing abdominal wall lifted the trocar was inserted into the peritoneal cavity. Balloon was inflated and CO2 pneumoperitoneum was achieved to 15 mmHg. Patient was positioned in reverse Trendelenburg with LEFT side down. A couple 5 mm trochars were inserted in the RIGHT upper abdomen. She was noted to have severe inflammatory adhesions with a massively distended acutely inflamed gallbladder. 10 mm trocar was inserted in the epigastrium. Adhesions were taken down using Hector ultrasonic harmonic archie. Gallbladder was grasped retracted anteriorly and superiorly over the dome the liver. It was markedly inflamed and appeared somewhat hydropic. There were extensive adhesions to the gallbladder and significant edema surrounding the gallbladder. Blunt dissection was carried out. Dissection was prolonged and rather difficult due to the severe inflammation of the gallbladder and delineation of the anatomy was difficult for some time. Ultimately the cystic duct and cystic artery were identified. Dissection was carried out isolating the cystic duct. And due to the severe inflammatory response, elevation of bilirubin, and difficulty discerning the anatomy plan was made to go ahead and proceed with cholangiogram. Through approximately a 2 mm incision in the RIGHT upper abdomen taut cholangiocatheter introducer and cholangiocatheter were inserted. There are very small incision in the cystic duct the catheter was manipulated into the cystic duct and secured with a Hemoclip. Intraoperative cholangiogram was performed which revealed good filling of the biliary tree with the catheter appropriately placed in the cystic duct and no evidence of any obstruction or filling defect. Patient was then repositioned and cholangiocatheter was removed. The cystic duct was multiply clipped and divided. The cystic duct was then secured with an 0 PDS Endoloop as well. The cystic artery was carefully coagulated with Hector ultrasonic harmonic archie and divided. The gallbladder was dissected free from the liver in a retrograde fashion using Hector ultrasonic harmonic archie. The gallbladder was placed within an Endo Catch retrieval device and removed from the peritoneal cavity via the umbilical trocar site which required generous extension of the fascial and skin incisions for delivery of the distended gallbladder with very large stone. The gallbladder fossa and perihepatic space were then thoroughly irrigated and aspirated until clear with approximately 3 L of warm saline irrigation. There was good hemostasis. Trochars were then removed as CO2 pneumoperitoneum was evacuated. Fascia at the umbilicus was closed with multiple interrupted 0 Vicryl sutures. Local anesthetic was infiltrated. Skin incisions were closed with 4-0 Monocryl in a subcuticular fashion. Steri-Strips and clean dry sterile dressings were applied. EBL (ml): 100 Anesthesia: GETA Specimens: Gallbladder Disposition Disposition: To PACU at 1926
--- NOTE | 2017-07-15 21:16 | RADIOLOGY REPORT PS360 ---
CHOLANGIOGRAM-OPERATIVE HISTORY: RUQ PAIN ORDERING PHYSICIAN: Roc Moctezuma MD PATIENT AGE: 81 years COMPARISON: None Fluoroscopy time: 23 seconds FINDINGS: Contrast is injected into the cystic duct showing good filling of the common bile duct with no evidence of filling defects within the common bile duct. Contrast flows into the duodenum. The proximal biliary radicles are not well filled. IMPRESSION: No evidence of residual common duct stone
[2017-07-16] VITALS (10 sets, daily range): BP systolic 98–120; BP diastolic 50–59
--- NOTE | 2017-07-16 06:55 | POST-OP PROGRESS NOTE ---
Post Op Subjective Data Patient is post-op day 1 Subjective data: Resting. Awake and alert without complaints. She states that she has been out of bed and is "doing good this morning". Post op objective data Vitals,I&O,and Labs: Vital signs, intake and output,and available lab data for the last 24 hours is as noted below. Vital Signs Date Time Temp Pulse Resp B/P Pulse O2 O2 Flow FiO2 Ox Delivery Rate 07/16 0423 98.3 97 16 118/57 94 OXYGEN 1 07/16 0255 98.0 96 14 113/55 94 07/16 0155 98.1 96 16 120/59 94 07/16 0055 98.4 97 16 115/54 98 07/15 2355 98.5 89 18 110/59 96 1 07/15 2255 97.0 85 16 101/51 95 1 07/15 2225 96.5 88 14 106/52 95 1 07/15 2155 97.5 85 16 102/58 96 2 07/15 2125 97.5 89 18 110/56 95 2 07/15 2055 97.0 86 16 121/68 96 2 07/15 2040 96.9 89 14 134/63 94 2 07/15 2025 97.3 90 16 132/68 94 2 07/15 2011 97.5 95 16 146/35 93 2 07/15 2010 97.5 95 16 146/65 93 2 07/15 2005 97.5 88 16 125/66 95 OXYGEN 07/15 1955 92 16 124/62 95 OXYGEN 07/15 1945 16 07/15 1945 92 16 120/70 95 OXYGEN 07/15 1940 16 07/15 1935 16 07/15 1935 84 16 129/59 95 OXYGEN 07/15 1925 87 16 126/51 94 OXYGEN 07/15 1921 97.6 87 112/52 95 07/15 1915 97.6 87 16 112/52 95 OXYGEN 07/15 1854 89 16 108/45 94 07/15 1137 98.2 89 16 108/45 94 ROOM AIR 07/15 0803 98.4 73 18 124/55 94 ROOM AIR 07/15 1500 07/15 2300 07/16 0700 Intake Total 100 100 Output Total 0 Balance 100 100 Intake, IV 100 Intake, Oral 0 100 Intake, Tube 0 Irrigant Output, 0 Emesis Output, 0 Estimated Blood Loss Output, Other 0 Output, Urine 0 Patient 78.274 kg Weight Laboratory Tests Test Result Date Time Chemistry Sodium (mmoL/L) 140 07/15 719 Potassium (mmoL/L) 3.8 07/15 719 Chloride (mmoL/L) 103 07/15 719 Carbon Dioxide (mmoL/L) 28 07/15 719 BUN (mg/dL) 38 07/15 719 Creatinine (mg/dL) 1.9 07/15 719 Estimated Creat Clear (ML/MIN) 28 07/15 719 Estimated GFR (MDRD) (ML/MIN) 25 07/15 719 Glucose (mg/dL) 150 07/15 719 POC Glucose (mg/dl) 260 07/15 2105 Calcium (mg/dL) 8.7 07/15 719 Total Bilirubin (mg/dL) 2.7 07/15 719 AST (U/L) 12 07/15 719 ALT (U/L) 11 07/15 719 Alkaline Phosphatase (U/L) 75 07/15 719 Creatine Kinase (U/L) 26 07/14 530 CK-MB (CK-2) Rel Index (U/L) 1.9 07/14 530 CK and CKMB Interp (ng/mL) < 0.5 07/14 530 Troponin I (ng/mL) 0.15 07/14 530 Total Protein (gm/dL) 5.7 07/15 719 Albumin (gm/dL) 3.0 07/15 719 Globulin (gm/dL) 2.7 07/15 719 Albumin/Globulin Ratio 1.1 07/15 719 Lipase (U/L) 312 07/13 1955 Coagulation PT (SECONDS) 11.2 07/15 719 INR 1.04 07/15 719 Hematology WBC (K/MM3) 14.8 07/15 719 RBC (M/mm3) 3.46 07/15 719 Hgb (g/dL) 9.8 07/15 719 Hct (%) 29.5 07/15 719 MCV (fl) 85.3 07/15 719 RDW (%) 13.5 07/15 719 Plt Count (K/mm3) 161 07/15 719 MPV (fl) 8.5 07/15 719 Gran % (%) 53.2 07/15 719 Gran # (K/mm3) 7.8 07/15 719 Total Counted (#CELLS) 100 07/14 530 Lymphocytes % (%) 41.4 07/15 719 Monocytes % (%) 4.4 07/15 719 Eosinophils % (%) 0.6 07/15 719 Basophils % (%) 0.4 07/15 719 Neutrophils (%) 77 07/14 530 Band Neutrophils (%) 5 07/14 530 Lymphocytes (Manual) (%) 13 07/14 530 Lymphocytes # (K/mm3) 6.1 07/15 719 Monocytes (Manual) (%) 5 07/14 530 Monocytes # (K/mm3) 0.7 07/15 719 Eosinophils # (K/mm3) 0.1 07/15 719 Basophils # (K/MM3) 0.1 07/15 719 Platelet Estimate NORMAL 07/14 530 PUBS MCHC (g/dl) 33.2 07/15 719 Immunology MCH (pg) 28.3 07/15 719 Physical Exam VS/I&O Vital Signs Date Time Temp Pulse Resp B/P Pulse O2 O2 Flow FiO2 Ox Delivery Rate 07/16 423 98.3 97 16 118/57 94 OXYGEN 1 07/16 0255 98.0 96 14 113/55 94 07/16 0155 98.1 96 16 120/59 94 07/16 0055 98.4 97 16 115/54 98 07/15 2355 98.5 89 18 110/59 96 1 07/15 2255 97.0 85 16 101/51 95 1 07/15 2225 96.5 88 14 106/52 95 1 07/15 2155 97.5 85 16 102/58 96 2 07/15 2125 97.5 89 18 110/56 95 2 07/15 2055 97.0 86 16 121/68 96 2 07/15 2040 96.9 89 14 134/63 94 2 07/15 2025 97.3 90 16 132/68 94 2 07/15 2011 97.5 95 16 146/35 93 2 07/15 2010 97.5 95 16 146/65 93 2 07/15 2005 97.5 88 16 125/66 95 OXYGEN 07/15 1955 92 16 124/62 95 OXYGEN 07/15 1945 16 07/15 1945 92 16 120/70 95 OXYGEN 07/15 1940 16 07/155 16 07/15 1935 84 16 129/59 95 OXYGEN 07/15 1925 87 16 126/51 94 OXYGEN 07/15 1921 97.6 87 112/52 95 07/15 1915 97.6 87 16 112/52 95 OXYGEN 07/15 1854 89 16 108/45 94 07/15 1137 98.2 89 16 108/45 94 ROOM AIR 07/15 0803 98.4 73 18 124/55 94 ROOM AIR I&O 07/16 0700 Intake Total 200 Output Total 0 Balance 200 Intake, IV 100 Intake, Oral 100 Intake, Tube 0 Irrigant Output, 0 Emesis Output, 0 Estimated Blood Loss Output, Other 0 Output, Urine 0 Patient 78.274 kg Weight Exam General appearance no acute distress, alert, oriented Respiratory no distress Cardiovascular regular rate and rhythm ((currently)) Abdomen soft (dressings intact. no erythema.) Post op patient plan Diagnoses: Severe acute calculus cholecystitis-overall, doing exceptionally well postoperative day 1 status post laparoscopic cholecystectomy Plan: Advance diet, ambulate, follow-up a.m. labs This inpt stay is expected to cross 2 MNs from start of care Yes Additional data: Slightly prolonged hospital stay secondary to severity of cholecystitis and patient's comorbid conditions. If her laboratory evaluation shows no significant/worsening abnormalities and if she continues to improve...she will likely be appropriate for discharge tomorrow morning. at 0712
[2017-07-16 07:08] LABS: HEMOGLOBIN 9.3 g/dL (12.2-16.2); LYMPH % 31.4 % (10-50.0)
--- NOTE | 2017-07-16 08:15 | ACUTE CARE PROGRESS NOTE (QUA) ---
Progress Notes Subjective Date 07/16/17 Time 0811 Note Pt is doing well postop. She has been tolerating her diet, her pain is controlled, she has been up and about in her room and had a bath. She slept well last night. Objective Findings Last VS-Temp:98.4 B/P:108/50 Pulse:108 Resp:18 SaO2:91 ROOM AIR Last weight lbs:172 oz:9 K.274 Method:Bed Scales Laboratory Tests 07/16/17 0650: WBC 12.8 H, RBC 3.29 L, Hgb 9.3 L, Hct 28.5 L, MCV 86.6, RDW 13.3, Plt Count 151, MPV 8.9, Gran % 63.4, Gran # 8.1 H, Lymphocytes % 31.4, Monocytes % 4.5, Eosinophils % 0.3, Basophils % 0.3, Lymphocytes # 4.0, Monocytes # 0.6, Eosinophils # 0.0, Basophils # 0.0, PUBS MCHC 32.6, MCH 28.3 07/16/17 0600: POC Glucose 165 H 07/15/17 2105: POC Glucose 260 H 07/15/17 1925: POC Glucose 249 H 07/15/17 1146: POC Glucose 193 H Exam General appearance: alert, awake, no acute distress Cardiovascular: irregularly irregular Respiratory: clear to auscultation ABD: non-distended, normal bowel sounds, no rebound, soft, no guarding, ttp around incision sites, dressings in place with some drainage Extremities: no peripheral edema Assessment/Plan Problem List 1. Calculus of gallbladder with cholecystitis Status: Acute 2. S/P laparoscopic cholecystectomy Status: Acute 3. Chest pain Status: Acute 4. Abdominal pain, right upper quadrant Status: Acute 5. Renal insufficiency Status: Chronic 6. A-fib Status: Chronic 7. T2DM (type 2 diabetes mellitus) Status: Chronic 8. Hypothyroidism Status: Chronic 9. CAD (coronary artery disease) Status: Chronic Plan: Surgery note reviewed. Will advance diet and have patient ambulate. This inpt stay is expected to cross 2 MNs from start of care Yes (Cristiane Leonard) Assessment/Plan Problem List 1. Calculus of gallbladder with cholecystitis Status: Acute 2. S/P laparoscopic cholecystectomy Status: Acute 3. Chest pain Status: Acute 4. Abdominal pain, right upper quadrant Status: Acute 5. Renal insufficiency Status: Chronic 6. A-fib Status: Chronic 7. T2DM (type 2 diabetes mellitus) Status: Chronic 8. Hypothyroidism Status: Chronic 9. CAD (coronary artery disease) Status: Chronic Comments: Patient seen and agree with above note. (Roc Moctezuma MD) at 0815 at 0890
--- NOTE | 2017-07-16 10:17 | ACUTE CARE PROGRESS NOTE (QUA) ---
Progress Notes Subjective Date 07/16/17 Time 0951 Note Ms Mercado came through laparoscopic gallbladder surgery yesterday evening without any noted complications. She is doing well this morning. Has been up out of bed. Tolerating her diet. Currently sleeping comfortably. Vital signs stable with blood pressures in the low normal range. May need to reduce some of her HTN medications. Rhythm is Afib with HR in the 80s currently. EKG this AM shows a HR of 114 bpm, Aflutter with variable Morning labs show diminished renal function: BUN 47, Cr 2.2, eGFR 21, eCrCl 24. Hgb lower at 9.3. Objective Findings Last VS-Temp:98.4 B/P:108/50 Pulse:108 Resp:18 SaO2:91 ROOM AIR Last weight lbs:172 oz:9 K.274 Method:Bed Scales Exam General appearance: no acute distress Cardiovascular: Afib with controlled V rate. Respiratory: clear to auscultation ABD: soft Extremities: no pedal edema Reviewed: medications, vital signs, lab results, EKG personally reviewed, nursing notes, Op report Assessment/Plan Problem List 1. Calculus of gallbladder with cholecystitis Status: Acute 2. S/P laparoscopic cholecystectomy Status: Acute 3. Chest pain Status: Acute 4. Abdominal pain, right upper quadrant Status: Acute 5. Renal insufficiency Status: Chronic 6. A-fib Status: Chronic 7. T2DM (type 2 diabetes mellitus) Status: Chronic 8. Hypothyroidism Status: Chronic 9. CAD (coronary artery disease) Status: Chronic Patient condition Stable Plan: D/C Lisinopril until renal function improves. D/C Terazosin due to low blood pressure. Hold HDZN and IDN if SBP < 120. Resume reduced dose Xarelto (15 mg) with evening meal tonight (ok'd with surgery). Monitor blood pressure, HR, and renal function closely. Will check a CMP in the morning. Will continue to follow. This inpt stay is expected to cross 2 MNs from start of care Yes
[2017-07-17] VITALS (8 sets, daily range): BP systolic 116–149; BP diastolic 42–75
--- NOTE | 2017-07-17 07:33 | SURGEON PROGRESS NOTE ---
Subjective data Subjective data: MONET FRANKLIN is a 81 F .Patient denies complaint of nausea and vomitting.She reports her last pain level as 0 on a 0-10 pain scale. Patient states she feels "pretty good". No complaints. Assessment findings Assessment Exam General appearance: normal appearance, alert ABD: distended Patient plan Plan: Antibiotics Additional data: Continue antibiotics for now. Findings of ileus. Possible discharge home soon. at 0768
[2017-07-17 07:42] LABS: HEMOGLOBIN 8.9 g/dL (12.2-16.2); LYMPH # 3.6 K/mm3 (0.7-4.5); LYMPH % 37.1 % (10-50.0)
--- NOTE | 2017-07-17 08:08 | ACUTE CARE PROGRESS NOTE (QUA) ---
Progress Notes Subjective Date 07/17/17 Time 0806 Assessment/Plan Problem List 1. Calculus of gallbladder with cholecystitis Status: Acute 2. S/P laparoscopic cholecystectomy Status: Acute 3. Chest pain Status: Acute 4. Abdominal pain, right upper quadrant Status: Acute 5. Renal insufficiency Status: Chronic 6. A-fib Status: Chronic 7. T2DM (type 2 diabetes mellitus) Status: Chronic 8. Hypothyroidism Status: Chronic 9. CAD (coronary artery disease) Status: Chronic This inpt stay is expected to cross 2 MNs from start of care Yes Antibiotic Stewardship (2) Infxn that will respond? Yes Right drug,dose,and route? Yes More targeted antbx? No at 0808
--- NOTE | 2017-07-17 08:14 | ACUTE CARE PROGRESS NOTE (QUA) ---
Progress Notes Subjective Date 07/17/17 Time 0811 Note Pt states she feels well this am. She still has not been able to eat a large amount. She only has pain when she coughs or takes a deep breath. She slept well. Objective Findings Last VS-Temp:98.0 B/P:116/44 Pulse:78 Resp:22 SaO2:90 ROOM AIR Last weight lbs:172 oz:9 K.274 Method:Bed Scales Laboratory Tests 07/17/17 0621: Sodium 137, Potassium 3.6, Chloride 103, Carbon Dioxide 24, BUN 40 H, Creatinine 2.0 H, Estimated Creat Clear 27 L, Estimated GFR (MDRD) 24 L, Glucose 147 H, Calcium 8.6, Total Bilirubin 1.6 H, AST 15, ALT 10 L, Alkaline Phosphatase 62, Total Protein 5.4 L, Albumin 2.7 L, Globulin 2.7, Albumin/ Globulin Ratio 1.0 L, WBC 9.6, RBC 3.10 L, Hgb 8.9 L, Hct 26.4 L, MCV 85.1, RDW 13.2, Plt Count 145, MPV 9.1, Gran % 55.8, Gran # 5.4, Lymphocytes % 37.1, Monocytes % 5.0, Eosinophils % 1.7, Basophils % 0.4, Lymphocytes # 3.6, Monocytes # 0.5, Eosinophils # 0.2, Basophils # 0.0, PUBS MCHC 33.8, MCH 28.8 07/17/17 0607: POC Glucose 149 H 07/16/17 2119: POC Glucose 217 H 07/16/17 1639: POC Glucose 216 H 07/16/17 1124: POC Glucose 247 H Exam General appearance: alert, awake, no acute distress Cardiovascular: irregularly irregular Respiratory: clear to auscultation ABD: non-distended, normal bowel sounds, no rebound, soft, no guarding, ttp only around incision sites Extremities: trace pretibial edema bilaterally Assessment/Plan Problem List 1. Calculus of gallbladder with cholecystitis Status: Acute 2. S/P laparoscopic cholecystectomy Status: Acute 3. Chest pain Status: Acute 4. Abdominal pain, right upper quadrant Status: Acute 5. Renal insufficiency Status: Chronic 6. A-fib Status: Chronic 7. T2DM (type 2 diabetes mellitus) Status: Chronic 8. Hypothyroidism Status: Chronic 9. CAD (coronary artery disease) Status: Chronic Plan: Dr. Israel to follow. Will continue abx. This inpt stay is expected to cross 2 MNs from start of care Yes (Cristiane Leonard) Assessment/Plan Problem List 1. Calculus of gallbladder with cholecystitis Status: Acute 2. S/P laparoscopic cholecystectomy Status: Acute 3. Chest pain Status: Acute 4. Abdominal pain, right upper quadrant Status: Acute 5. Renal insufficiency Status: Chronic 6. A-fib Status: Chronic 7. T2DM (type 2 diabetes mellitus) Status: Chronic 8. Hypothyroidism Status: Chronic 9. CAD (coronary artery disease) Status: Chronic Comments: Patient seen and agree with above note, saline lock, ambulate in [place] today. (Roc Moctezuma MD) at 0814 at 0848
--- NOTE | 2017-07-17 13:29 | ACUTE CARE PROGRESS NOTE (QUA) ---
Progress Notes Subjective Date 07/17/17 Time 1320 Note Blood pressure better since stopping Terazosin, HDN and Lisinopril. HR remains controlled. Renal function a little better on this morning's labs (creatinine 2.0). Other than being sore she feels ok. Objective Findings Last VS-Temp:98.3 B/P:130/58 Pulse:77 Resp:20 SaO2:93 ROOM AIR Last weight lbs:172 oz:9 K.274 Method:Bed Scales Exam Cardiovascular: afib with controlled V rate. Respiratory: clear to auscultation Extremities: no pedal edema Reviewed: medications, vital signs, lab results Assessment/Plan Problem List 1. Calculus of gallbladder with cholecystitis Status: Acute 2. S/P laparoscopic cholecystectomy Status: Acute 3. Chest pain Status: Acute 4. Abdominal pain, right upper quadrant Status: Acute 5. Renal insufficiency Status: Chronic 6. A-fib Status: Chronic 7. T2DM (type 2 diabetes mellitus) Status: Chronic 8. Hypothyroidism Status: Chronic 9. CAD (coronary artery disease) Status: Chronic Plan: As BP rises can resume Lisinopril (if renal function continues to improve) , HDZN (may need to reduce the dose) and even Terazosin if needed. Will see her in the office in 1 week to check BP and go over meds. This inpt stay is expected to cross 2 MNs from start of care Yes
[2017-07-18 00:07] VITALS: BP 127/40
[2017-07-18 04:42] VITALS: BP 136/61
[2017-07-18 07:38] VITALS: BP 159/80
--- NOTE | 2017-07-18 08:35 | ACUTE CARE PROGRESS NOTE (QUA) ---
Progress Notes Subjective Date 07/18/17 Time 0832 Note Patient feels better this morning, still with some abd pain, had a couple of bowel movements yesterday. Objective Findings Laboratory Tests 07/18/17 0604: POC Glucose 146 H 07/17/17 2124: POC Glucose 254 H 07/17/17 1633: POC Glucose 207 H 07/17/17 1121: POC Glucose 231 H Vital Signs Date Time Temp Pulse Resp B/P Pulse O2 O2 Flow FiO2 Ox Delivery Rate 07/18 0738 97.8 102 20 159/80 96 ROOM AIR 07/18 0442 98.0 88 20 136/61 96 ROOM AIR 07/18 0007 97.8 80 18 127/40 96 ROOM AIR 07/17 2209 2 07/17 2209 95 ROOM AIR 07/17 2100 98.2 85 18 142/42 95 07/17 2000 98.2 85 18 142/42 96 ROOM AIR 07/17 1600 97.3 90 16 135/75 95 ROOM AIR 07/17 1204 98.3 77 20 130/58 93 ROOM AIR I&O Past 24 Hrs-ending at 0700 07/18 0700 Intake Total 480 Output Total Balance 480 Last VS-Temp:97.8 B/P:159/80 Pulse:102 Resp:20 SaO2:96 ROOM AIR Last weight lbs:172 oz:9 K.274 Method:Bed Scales Exam General appearance: alert, awake, no acute distress Cardiovascular: irregularly irregular Respiratory: clear to auscultation ABD: normal bowel sounds, soft, tenderness (RUQ) Assessment/Plan Problem List 1. Calculus of gallbladder with cholecystitis Status: Acute 2. S/P laparoscopic cholecystectomy Status: Acute 3. Chest pain Status: Acute 4. Abdominal pain, right upper quadrant Status: Acute 5. Renal insufficiency Status: Chronic 6. A-fib Status: Chronic 7. T2DM (type 2 diabetes mellitus) Status: Chronic 8. Hypothyroidism Status: Chronic 9. CAD (coronary artery disease) Status: Chronic This inpt stay is expected to cross 2 MNs from start of care Yes Comments: Patient improving, probable discharge later today. at 0834
--- NOTE | 2017-07-18 09:53 | SURGEON PROGRESS NOTE ---
Subjective data Subjective data: MONET FRANKLIN is a 81 F .Patient denies complaint of nausea and vomitting.She reports her last pain level as 0 on a 0-10 pain scale. Doing quite well. Tolerating limited diet without difficulty. Several bowel movements. Assessment findings Assessment Exam General appearance: normal appearance, alert ABD: soft Patient plan Plan: DISCHARGE Additional data: Should be okay for discharge today. Will see in office in about two weeks. at 2208
[2017-07-18 12:00] VITALS: BP 142/63
[2017-07-18] MEDS ORDERED: TYLENOL325 MG PO (13:20)
[2017-07-18 13:36] VITALS: BP 142/63
[2017-07-19] MEDS ORDERED: TERAZOSIN PO (12:02)
[2017-07-19] MEDS ORDERED: FUROSEMIDE40 MG PO (12:03)
[2017-07-19] MEDS ORDERED: HYDRALAZINE10 MG PO (12:03)
[2017-07-19] MEDS ORDERED: LISINOPRIL 20MG20 MG PO (12:03)
--- NOTE | 2017-07-20 17:12 | DISCHARGE SUMMARY STANDARD ---
Discharge Summary (FCA2) Date of admission: 07/15/17 Date of discharge: 07/18/17 Problem List: 1. Calculus of gallbladder with cholecystitis 2. S/P laparoscopic cholecystectomy 3. Chest pain 4. Abdominal pain, right upper quadrant 5. Renal insufficiency 6. A-fib 7. T2DM (type 2 diabetes mellitus) 8. Hypothyroidism 9. CAD (coronary artery disease) History of present illness: History of Present Illness: Ms Mercado is an 81 year old female with a history of CAD, T2DM, CVA, HTN, Hypothyroidism, macular degeneration, and atrial fib who presented to [facility] ER with severe right anterior chest and upper abdominal pain. She stated the pain started the previous PM. She did not vomit and had no diarrhea. She denied SOB. She noted that her heart always skipped around with her atrial fib. With evaluation in the ER Troponin's were slight elevated. Pain was relieved with NTG. EKG on arrival showed afib, HR of 99 bpm, with no acute ischemic changes. BP was elevated to 198/97 on arrival. Serial Troponins showed no change (0.16, 0.15, 0.16, 0.15). She was admitted for further evaluation and treatment. Exam on admission: Vital signs: Vital Signs Date Time Temp Pulse Resp B/P Pulse O2 O2 Flow FiO2 Ox Delivery Rate 07/14 0910 97.8 93 20 155/97 97 07/14 0830 97.8 93 20 155/97 97 ROOM AIR 07/14 0432 98.3 111 20 145/63 95 ROOM AIR 07/14 0105 2 07/14 0105 2 07/14 0105 95 ROOM AIR 2 07/14 0105 95 ROOM AIR 07/14 0102 93 07/14 0102 97.8 93 18 150/80 07/14 0102 95 ROOM AIR 07/14 0045 97.8 93 18 150/80 95 ROOM AIR 07/14 0028 98.0 91 18 203/91 98 07/14 0025 98.0 91 18 203/91 98 07/13 2256 98.0 85 18 189/76 95 07/130 98.3 85 18 171/78 94 07/13 2149 97 16 144/75 96 07/13 2118 89 16 168/100 94 07/13 2117 16 07/13 2048 98.3 100 20 155/75 93 07/13 1954 97.6 110 20 198/97 99 1ST Vital Signs Result Date Time Pulse Ox 99 07/13 1954 B/P 198/97 07/13 1954 Temp 97.6 07/13 1954 Pulse 110 07/13 1954 Resp 20 07/13 1954 O2 Delivery ROOM AIR 07/14 004 O2 Flow Rate 2 07/14 0105 Exam: General appearance: alert, active, no acute distress Eyes: anicteric ENT: mucous membranes moist, pharynx normal Neck: non-tender, no carotid bruit, full range of motion, lymphadenopathy ( absent), thyroid (normal) Cardiovascular: irregularly irregular Respiratory: clear to auscultation (bilat anterior and posterior) ABD: non-distended, soft, no guarding, bowel sounds present, tenderness (RUQ) Extremities: no peripheral edema Neuro: alert, oriented, speech clear Hospital Course: AM after admission she remained comfortable without CP and SOB. She was able to eat a little breakfast. She noted that she had GERD in the recent past and was given Nexium which she did not take because she had no further problems. She remained tender in the RUQ. BP and HR improved and were well within normal limits. She had a RUQ US and was found to have acute cholecystitis with a large gallstone. Dr. Israel was consulted and planned surgery after cardiac clearance. Workup has revealed acute cholecystitis with a large gallstone. She was evaluated by cardiology with the following assessment: patient needs urgent gallbladder surgery. From a positive standpoint, she had no angina sxs and her LVSF was normal. On a negative note, her history and limited activity made her an intermediate risk for CV complications during surgery. Given the situation with her gallbladder, there was no time to do an ischemic workup which , if significantly abnormal, would require a left heart catherization, possible stenting, and dual antiplatelet therapy for a minimum of 1 month. This was discussed with Ms Mercado and her daughter Shira. They understood the CV risk involved, to include heart attack, stroke or even and were willing to proceed with urgent gallbladder surgery. Recommendations were: 1. continuous telemetry monitoring postop. 2. 12 lead EKG postoperatively. 3. Other than Xarelto, ASA and Furosemide, all other CV meds to be continued throughout the perioperative period, especially her Atorvastatin and Carvedilol. 3. Xarelto and low-dose ASA to be resumed MARK postoperatively. Echo showed mild LVH, normal LVSF, EF 50-55%, no regional wall motion absence, biatrial enlargement, mild , moderate MR and TR, moderate PHTN. On 07/15/17 she had a lap cholecystectomy with intraoperative cholangiogram per Dr. Israel. Post op day one diet was advanced and she was able to ambulate. Her pain was controlled. BP was low with renal insufficiency and meds were adjusted by cardiology who followed her throughout her stay. !09/18/16 her bowels were moving. She was ambulating in her room and tolerating her food. On this date she was able to be discharged to home. Laboratory data this visit: Labs: Laboratory Tests 07/14/17 0630: POC Glucose 359 *H 07/14/17 0530: Sodium 141, Potassium 4.0, Chloride 104, Carbon Dioxide 28, BUN 35 H, Creatinine 1.5 H, Estimated Creat Clear 36 L, Estimated GFR (MDRD) 33 L, Glucose 362 H, Calcium 9.6, Creatine Kinase 26, CK-MB (CK-2) Rel Index 1.9, CK and CKMB Interp < 0.5, Troponin I 0.15 H, WBC 16.0 H, RBC 4.05 L, Hgb 11.2 L , Hct 34.5 L, MCV 85.1, RDW 13.4, Plt Count 174, MPV 8.6, Gran % 77.3, Gran # 12.5 H, Total Counted 100, Lymphocytes % 17.7, Monocytes % 4.6, Eosinophils % 0.1, Basophils % 0.2, Neutrophils 77 H, Band Neutrophils 5, Lymphocytes (Manual ) 13, Lymphocytes # 2.9, Monocytes (Manual) 5, Monocytes # 0.7, Eosinophils # 0.0, Basophils # 0.0, Platelet Estimate NORMAL, PUBS MCHC 32.5, MCH 27.7 07/14/17 0305: Creatine Kinase 28, CK-MB (CK-2) Rel Index 1.8, CK and CKMB Interp < 0.5, Troponin I 0.16 H 07/13/17 2200: Troponin I 0.15 H 07/13/171954: Lipase 312 07/13/171954: Sodium 141, Potassium 4.0, Chloride 103, Carbon Dioxide 31, BUN 37 H, Creatinine 1.8 H, Estimated Creat Clear 31 L, Estimated GFR (MDRD) 27 L, Glucose 329 H, Calcium 9.8, Total Bilirubin 1.0, AST 17, ALT 16, Alkaline Phosphatase 151 H, Creatine Kinase 32, CK-MB (CK-2) Rel Index 1.6, CK and CKMB Interp < 0.5, Troponin I 0.16 H, Total Protein 7.1, Albumin 4.2, Globulin 2.9, Albumin/Globulin Ratio 1.4, WBC 11.9 H, RBC 4.22, Hgb 11.6 L, Hct 35.9 L, MCV 85.0, RDW 13.4, Plt Count 186, MPV 8.5, Gran % 67.0, Gran # 8.0 H, Lymphocytes % 27.4, Monocytes % 3.8, Eosinophils % 1.4, Basophils % 0.4, Lymphocytes # 3.3, Monocytes # 0.5, Eosinophils # 0.2, Basophils # 0.1, PUBS MCHC 32.5, MCH 27.6 07/16/17 0650: WBC 12.8 H, RBC 3.29 L, Hgb 9.3 L, Hct 28.5 L, MCV 86.6, RDW 13.3, Plt Count 151, MPV 8.9, Gran % 63.4, Gran # 8.1 H, Lymphocytes % 31.4, Monocytes % 4.5, Eosinophils % 0.3, Basophils % 0.3, Lymphocytes # 4.0, Monocytes # 0.6, Eosinophils # 0.0, Basophils # 0.0, PUBS MCHC 32.6, MCH 28.3 07/16/17 0600: POC Glucose 165 H 07/15/17 2105: POC Glucose 260 H 07/15/17 1925: POC Glucose 249 H 07/15/17 1146: POC Glucose 193 H 07/17/17 0621: Sodium 137, Potassium 3.6, Chloride 103, Carbon Dioxide 24, BUN 40 H, Creatinine 2.0 H, Estimated Creat Clear 27 L, Estimated GFR (MDRD) 24 L, Glucose 147 H, Calcium 8.6, Total Bilirubin 1.6 H, AST 15, ALT 10 L, Alkaline Phosphatase 62, Total Protein 5.4 L, Albumin 2.7 L, Globulin 2.7, Albumin/ Globulin Ratio 1.0 L, WBC 9.6, RBC 3.10 L, Hgb 8.9 L, Hct 26.4 L, MCV 85.1, RDW 13.2, Plt Count 145, MPV 9.1, Gran % 55.8, Gran # 5.4, Lymphocytes % 37.1, Monocytes % 5.0, Eosinophils % 1.7, Basophils % 0.4, Lymphocytes # 3.6, Monocytes # 0.5, Eosinophils # 0.2, Basophils # 0.0, PUBS MCHC 33.8, MCH 28.8 Imaging: CXR 07/13/17 IMPRESSION: Stable chest. Nothing definitely acute Generous cardiomegaly. CABG again noted Mild chronic changes 07/14/17 RUQ US IMPRESSION Cholelithiasis. Large 3.5 x 2 cm gallstone in gallbladder. With prominent Cholecystitis. Prominent Diffuse wall thickening with pericholecystic fluid likely reflects acute cholecystitis.. Common duct normal diameter. ECHO 07/14/17 CONCLUSION: 1. Biatrial enlargement, normal left ventricular size, mild concentric left ventricular hypertrophy, visually estimated ejection fraction of 50-55% with no obvious regional wall motion abnormality, diastolic parameters are inconclusive. 2. Thickened and calcified aortic valve with mean gradient across valve of 14 mmHg represents mild aortic stenosis, there is no aortic insufficiency. 3. Moderate mitral and moderate tricuspid regurgitation, calculated right ventricular systolic pressure is 55 mmHg consistent with moderate pulmonary hypertension. 4. No significant pericardial effusion noted. CHOLANGIOGRAM-OPERATIVE IMPRESSION: No evidence of residual common duct stone Discharge medications: Stop taking the following medications: Furosemide (Furocot) 40 MG TAB ORAL TWICE A DAY Hydralazine Hcl (Hydralazine Hcl) 100 MG TABLET ORAL THREE TIMES A DAY Lisinopril (Lisinopril 40MG) 40 MG TABLET ORAL DAILY Terazosin Hcl (Terazosin) 5 MG CAPSULE ORAL AT BEDTIME NIGHTLY Continue taking these medications: Carvedilol (Coreg) 25 MG TABLET 25 MILLIGRAM ORAL TWICE A DAY Glipizide (Glipizide 5MG) 5 MG TABLET 5 MILLIGRAM ORAL TWICE A DAY ATORVASTATIN CALCIUM (Lipitor 80MG) 80 MG TABLET 80 MILLIGRAM ORAL AT BEDTIME NIGHTLY AMLODIPINE BESYLATE (Norvasc) 10 MG TABLET 5 MILLIGRAM ORAL DAILY FERROUS SULFATE (IRON) 325 MG TABLET 325 MILLIGRAM ORAL DAILY Instructions: 65 MG OF ELEMENTAL IRON PER TABLET Aspirin (Adult Low Dose Aspirin EC) 81 MG TABLET.DR 81 MILLIGRAM ORAL TWICE A DAY LEVOTHYROXINE SOD (Synthroid) 100 MCG TABLET 0.1 MILLIGRAM ORAL DAILY Isosorbide Dinitrate (Isosorbide Dinitrate) 30 MG TABLET 30 MILLIGRAM ORAL THREE TIMES A DAY Cyanocobalamin (Vitamin B-12) (B-12) 1,000 MCG TABLET 1,000 MICROGRAM ORAL DAILY Febuxostat (Uloric) 40 MG TABLET 40 MILLIGRAM ORAL DAILY Qty = 30 Rivaroxaban (Xarelto) 15 MG TABLET 15 MILLIGRAM ORAL DAILY Qty = 90 Start taking the following new medications: Acetaminophen (Tylenol) 325 MG TABLET 325 MILLIGRAM ORAL EVERY 4 HOURS NEEDED as needed for MILD TO MODERATE PAIN Days = 10 No Refills Disposition: Follow up: 10 DAYS with: Ole Israel MD Activity: Cont Current activity Diet: Continue same diet Discharge to: HOME Agency needed? N also to FU with cardiology in 1 week Meds as per reconciliation sheet at 1711
== END 2017-07-18 14:15 | disposition home or self-care (01) | DRG 419 ==
LOC: ER 19:50 → 2ND 23:10 → ER 23:10 → 2ND 23:16
PROVIDERS: Emergency Medicine; Family Medicine; Internal Medicine Cardiovascular Disease; Surgery
PROC: 0FT44ZZ Resection of Gallbladder, Percutaneous Endoscopic Approach (ICD-10-PCS; principal; 2017-07-15 14:30)
PROC: BF121ZZ Fluoroscopy of Gallbladder using Low Osmolar Contrast (ICD-10-PCS; principal; 2017-07-15 14:30)
DX: K80.10 Calculus of gallbladder with chronic cholecystitis without obstruction (principal); I48.91 Unspecified atrial fibrillation; E11.9 Type 2 diabetes mellitus without complications
CPT/HCPCS: G0378; J0131; J2405; J2543; Q9967

== ENCOUNTER 2017-07-19 11:21 | Emergency (ER) | payer MEDICARE, OTHER ==
[~2017-07-19] VITALS: Ht 165.1 cm; Wt 83.9 kg
[~2017-07-19 11:21] MED LIST changes: +ADULT LOW DOSE81 MG PO; +B-121000 MC1 PO; +COLCHICINE0.6 M4 PO; +ISOSORBIDE DINI30 MG PO; +LEVOTHYROXINE0.1 MG PO; +NATURAL IRON65 MG PO; +TERAZOSIN5 MG PO; +TYLENOL325 MG PO; +ULORIC40 MG PO; +XARELTO15 MG PO; +XARELTO20 MG PO
--- NOTE | 2017-07-19 11:41 | Emergency Room Report ---
History of Present Illness Time Seen by MD Suarez Presenting Problem in Triage Pt arrived:Wheelchair Presenting Problem:PT ADVISES THAT SHE HAD HER GALLBLADDER REMOVED ON 07/14 AND SHE WAS TOLD TO D/C HER LASIX, TARAZOSIN, HYDROLAZINE, AND LISINOPRIL. 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 N Clinical Suspician of Infection? N Mental Status: 1 - Regular (Normal Baseline) Sepsis Risk:Possible Sepsis Risk Have you (or family members/close friends) recently traveled outside the [place]? N If Yes, where/when: Have you had exposure to infectious disease within the past month? N TB? Other? Specify: Source patient, RN notes reviewed, family, old records Exam Limitations no limitations Comment pt with recent admit for gb surg and has known a fib - card consult and notes reviewed- she has no chest pain Cardiac Chest Pain Chest pain indicative of cardiac No Timing/Duration this evening Severity moderate ALLERGIES Coded Allergies: Penicillins (07/16/17) betamethasone (From CELESTONE) (07/15/17) cefuroxime (From CEFTIN) (07/15/17) dexamethasone (From DECADRON) (07/15/17) enoxaparin (From LOVENOX) (07/15/17) heparin (07/15/17) nitrofurantoin (From MACRODANTIN) (07/15/17) prednisone (07/15/17) Home Medications Active Scripts Acetaminophen (Tylenol) 325 MG PO Q4HP PRN MILD TO MODERATE PAIN 10 Days Prov: 07/18/17 Reported Medications Carvedilol (Coreg) 25 MG PO BID ATORVASTATIN CALCIUM (Lipitor 80MG) 80 MG PO QHS AMLODIPINE BESYLATE (Norvasc) 5 MG PO DAILY FERROUS SULFATE (IRON) 325 MG PO DAILY Isosorbide Dinitrate 30 MG PO TID Cyanocobalamin (Vitamin B-12) (B-12) 1,000 MCG PO DAILY Glipizide (Glipizide 5MG) 5 MG PO BID LEVOTHYROXINE SOD (Synthroid) 0.1 MG PO DAILY Aspirin (Adult Low Dose Aspirin EC) 81 MG PO BID Febuxostat (Uloric) 40 MG PO DAILY #30 TAB Rivaroxaban (Xarelto) 15 MG PO DAILY #90 TAB TERAZOSIN HCL (Terazosin HCl) 5 MG PO QHS HYDRALAZINE HCL (Hydralazine HCl) 100 MG PO TID LISINOPRIL (Lisinopril) 20 MG PO DAILY Furosemide (Furosemide 40MG) 40 MG PO DAILY Discontinued Reported Medications Hydralazine Hcl 100 MG PO TID Lisinopril (Lisinopril 40MG) 20 MG PO DAILY Terazosin Hcl (Terazosin) 5 MG PO QHS DABIGATRAN ETEXILATE MESYLATE (Pradaxa) 150 MG PO DAILY Furosemide (Furocot) 40 MG PO BID Amiodarone Hcl (Amiodarone 200MG) 200 MG PO DAILY Ezetimibe (Zetia) 10 MG PO DAILY History Medical History General CAD? Yes Angina: No VA: Yes Hypertension? Yes Hyperlipidemia? Yes CHF? Yes DVT? No PE? No COPD? No Asthma? No Anemia? Yes GERD? No Gastric ulcers? No GI Bleed? No Hernia? No Thyroid Problems? Yes Hypothyroidism? Yes CVA? Yes Seizures? No Diabetes? Yes Insulin Dependent: No Insulin Pump: No Home FSBS? Yes Renal Insuffiency? No End Stage Renal Disease? No UTI? No Stones? No BPH? No GB Disease: No Nephritic Syndrome? No Asplenia? No Hepatitis? No Sickle Cell Disease? No Arthritis? No Migraines? No Cataracts? Yes Glaucoma? No MRSA? No HIV? No TB? No Anxiety? No Depression? No Cancer? No More? No Additional hx: See the problem list. Immunization Hx DT/Tetanus Unknown Flu Refused Pneumonia Received In Past Surgical Hx Previous Surgery?Y APPENDECTOMY RT HAND THUMB SURGERY TONSILLECTOMY R KNEE SURGERY Coronary Artery Bypass Family History Family Hx Diabetes No CAD Yes Hypertension Yes Hyperlipidemia No Cancer No TB No Social History Smoking Hx Smoker: Never Smoker Tobacco: No Packs/day N/A Alcohol Alcohol: No Drugs none Review of Systems All Other Systems Reviewed and Negative Constitutional denies fever Eyes denies drainage ENT denies: ear discharge, epistaxis, throat pain. Respiratory see HPI, denies cough, shortness of breath, denies wheezing Cardiovascular see HPI, denies chest pain, denies palpitations, denies syncope, other Gastrointestinal denies abdominal pain, denies diarrhea, denies vomiting Genitourinary denies: dysuria, frequency, hesitancy, hematuria. Musculoskeletal denies back pain, denies joint pain, denies joint swelling, denies neck pain Skin denies rash Psychiatric/Neurological denies headache, denies seizure Physical Exam Vital Signs Vital Signs Date Time Temp Pulse Resp B/P Pulse O2 O2 Flow FiO2 Ox Delivery Rate 07/19 1337 78 22 140/95 95 07/19 1255 98 22 154/77 96 07/19 1130 97.9 101 22 160/71 95 - WBC >12,000 or <4,000 or 10% bands? 2 or more SIRS Criteria Met? B/P:140/95 MAP:100 Creatinine >2.0? UA output<0.5ml/kg/hr for 2 hrs? Platelet count >100,000? Lactate >2.0mmol/1? INR >1.2 or PTT > than 60 sec? Evidence of Organ Dysfunction? Provider documented clinical suspician of infection? N Sepsis Criteria Count: 2 Sepsis Risk: Possible Sepsis Risk General Appearance no apparent distress Eye Exam - bilateral eye PERRL, bilateral eye EOMI Ear, Nose, Throat normal ENT inspection Neck supple Respiratory Status No: respiratory distress. Lung Sounds bilateral: decreased breath sounds. 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 No Results/Orders Laboratory Tests 07/19/17 1130: Troponin I 0.11 H, B-Natriuretic Peptide 757 H 07/19/17 1130: Sodium 139, Potassium 3.8, Chloride 106, Carbon Dioxide 23, BUN 20 H, Creatinine 1.4 H, Estimated Creat Clear 41 L, Estimated GFR (MDRD) 36 L, Glucose 252 H, Calcium 8.9, Total Bilirubin 1.1 H, AST 16, ALT 16, Alkaline Phosphatase 83, Total Protein 6.0 L, Albumin 3.0 L, Globulin 3.0, Albumin/ Globulin Ratio 1.0 L, WBC 9.9, RBC 3.32 L, Hgb 9.3 L, Hct 28.1 L, MCV 84.5, RDW 13.3, Plt Count 193, MPV 8.3, Gran % 57.1, Gran # 5.6, Lymphocytes % 35.9, Monocytes % 4.6, Eosinophils % 2.1, Basophils % 0.3, Lymphocytes # 3.5, Monocytes # 0.5, Eosinophils # 0.2, Basophils # 0.0, PUBS MCHC 33.2, MCH 28.1 Current Medication Orders Sig/Mike Start time Last Medication Dose Route Stop Time Status Admin Furosemide 0 .STK-MED ONE 07/19 1247 DC .ROUTE Furosemide 20 MG ONCE ONE 07/19 1245 DC 07/19 IV 07/19 1246 1249 Sodium Chloride 10 ML PRN PRN 07/19 1145 AC IV 07/20 1137 Orders Procedure Date/time Status TROPONIN I 07/19 1147 Complete BRAIN NATRIURETIC PEPTIDE 07/19 1147 Complete CHEST(2 VIEWS-NOT PORTABLE) 07/19 1137 Active IV SALINE LOCK 07/19 1137 Active CBC WITH AUTO DIFF 07/19 1137 Complete CHEM 12 PROFILE 07/19 1137 Complete XRAY/CT/US XRAY/CT/US XRAY chest XR interpretation by reviewed by me Xray Results abnormal (vascular congestion) Departure Departure Time of Disposition 1331 Disposition DC Home or Self Care(routine) Clinical Impression Primary Impression: CHF (congestive heart failure) Qualifiers: Congestive heart failure type: combined Congestive heart failure chronicity: acute on chronic Qualified Code: I50.43 - Acute on chronic combined systolic (congestive) and diastolic (congestive) heart failure Secondary Impressions: A-fib Qualifiers: Atrial fibrillation type: chronic Qualified Code: I48.2 - Chronic atrial fibrillation Anemia Qualifiers: Anemia type: unspecified type Qualified Code: D64.9 - Anemia, unspecified Renal insufficiency Condition STABLE Referrals Roc Moctezuma MD (Family) discussed with dr moctezuma Patient Instructions DI for Heart Failure Additional Instructions call pcp and alex mauricio in am - december restart lasix Discharge Counseling Counseled pt/family regarding diagnosis, test results, medications/RX, follow up needs ED Critical Care Critical Care No at [phone]
--- OUTSIDE RECORDS SUMMARY | 2017-07-19 11:46 | External Medical Summary Rpt | CCD ---
Demographics Preferred Language Serbian Marital Status Unknown [employer] Affiliation Unknown Race Unknown Ethnic Group Unknown Author Author , DENISE WALKER Address Unknown Phone Immunization No patient found.
--- OUTSIDE RECORDS SUMMARY | 2017-07-19 11:46 | External Medical Summary Rpt | CCD ---
Author Author , DENISE WALKER Address Unknown Phone [email or web address] Purpose Continuity of Care Document - 05-01-2017 through 2016 Problems Code Diagnosis DOS Provider Status I48.91 UNSPECIFIED ATRIAL FIBRILLATIO N N28.9 DISORDER OF KIDNEY AND URETER, UNSPECIFIED N95.9 UNSPECIFIED MENOPAUSAL AND PERIMENOPAU DENISE DISORDER R07.9 CHEST PAIN, UNSPECIFIED R92.8 OTH ABN AND INCONCLUSIV E FINDINGS ON DX IMAGING OF BREAST Results Labs Lab Lab Date Result Refere Interp Status Commen Order Detail nces retati t Range on Glucose capillary blood glucometer (07-18-2017 11:14) Glucose 2 = 271 70-110 complet 017 mg/dl ed capilla 11:[address] Glucose capillary blood glucometer (07-18-2017 06:04) Glucose 2 = 146 70-110 complet 017 mg/dl ed capilla 06:[address] Glucose capillary blood glucometer (07-17-2017 16:33) Glucose 2 = 207 70-110 complet 017 mg/dl ed capilla 16:[address] Glucose capillary blood glucometer (07-17-2017 11:21) Glucose 2 = 231 70-110 complet 017 mg/dl ed capilla 11:[address] Comprehensive metabolic panel (07-17-2017 06:21) Protein 2 = 5.4 6.4-8.2 complet total 017 gm/dL ed ser/aliosn 06:21 s ALT = 10 12-78 complet (SGPT) 017 U/L ed ser/alison 06:21 s Serum = 15 15-37 complet or 017 U/L ed plasma 06:21 asparta te aminotr ansfera Serum = 137 136-145 complet sodium 017 mmoL/L ed measure 06:21 ment Serum = 3.6 3.5-5.1 complet potassi 017 mmoL/L ed um 06:21 measure ment Serum = 147 74-106 complet or 017 mg/dL ed plasma 06:21 glucose measure ment (mas Serum = 2.7 1.3-3.2 complet globuli 017 gm/dL ed n 06:21 measure ment (mass/v olume) Estimat = 24 59- complet ed 017 ML/MIN ed glomeru 06:21 lar filtrat ion rate (GF Comment: REFERENCE RANGE: >60 ML/MIN/1.73 SQUARE METERS Comment: If this patient is -[place], then multiply the Comment: result by 1.210. Estimat = 27 50-200 complet ion of 017 ML/MIN ed creatin 06:21 ine renal clearan ce Serum = 2.0 0.55-1. complet or 017 mg/dL 02 ed plasma 06:21 creatin ine measure ment ( Carbon = 24 21.0-32 complet dioxide 017 mmoL/L .0 ed 06:21 measure ment Serum = 103 98-107 complet or 017 mmoL/L ed plasma 06:21 chlorid e measure ment (mo Serum = 8.6 8.5-10. complet or 017 mg/dL 1 ed plasma 06:21 calcium measure ment (mas Serum = 40 7-18 complet or 017 mg/dL ed plasma 06:21 urea nitroge n measure men Serum = 1.6 0.2-1.0 complet or 017 mg/dL ed plasma 06:21 total bilirub in measure m Serum = 62 46-116 complet or 017 U/L ed plasma 06:21 alkalin e phospha tase delia Serum = 2.7 3.4-5.0 complet or 017 gm/dL ed plasma 06:21 albumin measure ment (mas Serum = 1.0 1.1-1.8 complet or 017 ed plasma 06:21 albumin /globul in mass ra CBC w auto diff (07-17-2017 06:21) Blood = 9.6 4.8-10. complet leukocy 017 K/MM3 8 ed dariusz 06:21 count (number /volume ) Automat = 13.2 11.5-17 complet ed 017 % .5 ed erythro 06:21 cyte distrib ution width Red = 3.10 4.2-5.4 complet blood 017 M/mm3 ed cell 06:21 count Blood = 145 142-424 complet platele 017 K/mm3 ed t count 06:21 Automat = 9.1 7.4-10. complet ed 017 fl 4 ed blood 06:21 platele t mean volume delia Cataño % = 5.0 % 1.7-9.3 complet 017 ed 06:21 Absolut = 0.5 0.1-1.0 complet e 017 K/mm3 ed monocyt 06:21 e count Automat = 85.1 82.2-97 complet ed 017 fl .8 ed erythro 06:21 cyte mean corpusc ular v Automat = 33.8 31.8-35 complet ed 017 g/dl .4 ed erythro 06:21 cyte mean corpusc ular h Mean = 28.8 27-31.2 complet corpusc 017 pg ed ular 06:21 hemoglo bin (MCH) determ Lymphoc = 37.1 10-50.0 complet yte 017 % ed count, 06:21 blood, automat ed Absolut = 3.6 0.7-4.5 complet e 017 K/mm3 ed lymphoc 06:21 yte count Blood = 8.9 12.2-16 complet hemoglo 017 g/dL .2 ed bin 06:21 measure ment (mass/v olum Blood = 26.4 37.0-47 complet hematoc 017 % .0 ed rit 06:21 (volume fractio n) Granulo = 55.8 37.0-80 complet cyte 017 % .0 ed percent 06:21 age Blood = 5.4 1.8-7.8 complet granulo 017 K/mm3 ed cytes 06:21 automat ed count (numb Automat = 1.7 % 0.1-12. complet ed 017 0 ed blood 06:21 eosinop hils/10 0 leukocy t Automat = 0.2 0.0-0.4 complet ed 017 K/mm3 ed blood 06:21 eosinop hil count Baso % = 0.4 % 0.1-2.0 complet 017 ed 06:21 Automat = 0.0 0-0.2 complet ed 017 K/MM3 ed blood 06:21 basophi l count (count/ vo Glucose capillary blood glucometer (07-17-2017 06:07) Glucose = 149 70-110 complet 017 mg/dl ed capilla 06:[address] Glucose capillary blood glucometer (07-16-2017 21:19) Glucose = 217 70-110 complet 017 mg/dl ed capilla 21:[address] Glucose capillary blood glucometer (07-16-2017 16:39) Glucose = 216 70-110 complet 017 mg/dl ed capilla 16:[address] Glucose capillary blood glucometer (07-16-2017 11:24) Glucose = 247 70-110 complet 017 mg/dl ed capilla 11:[address] CBC w auto diff (07-16-2017 06:50) Blood = 8.1 1.8-7.8 complet granulo 017 K/mm3 ed cytes 06:50 automat ed count (numb Granulo = 63.4 37.0-80 complet cyte 017 % .0 ed percent 06:50 age Blood = 28.5 37.0-47 complet hematoc 017 % .0 ed rit 06:50 (volume fractio n) Blood = 9.3 12.2-16 complet hemoglo 017 g/dL .2 ed bin 06:50 measure ment (mass/v olum Absolut = 4.0 0.7-4.5 complet e 017 K/mm3 ed lymphoc 06:50 yte count Lymphoc = 31.4 10-50.0 complet yte 017 % ed count, 06:50 blood, automat ed Mean 07-16-2 = 28.3 27-31.2 complet corpusc 017 pg ed ular 06:50 hemoglo bin (MCH) determ Automat 2 = 32.6 31.8-35 complet ed 017 g/dl .4 ed erythro 06:50 cyte mean corpusc ular h Automat = 86.6 82.2-97 complet ed 017 fl .8 ed erythro 06:50 cyte mean corpusc ular v Absolut = 0.6 0.1-1.0 complet e 017 K/mm3 ed monocyt 06:50 e count Cataño % = 4.5 % 1.7-9.3 complet 017 ed 06:50 Automat 2 = 8.9 7.4-10. complet ed 017 fl 4 ed blood 06:50 platele t mean volume delia Blood = 151 142-424 complet platele 017 K/mm3 ed t count 06:50 Red = 3.29 4.2-5.4 complet blood 017 M/mm3 ed cell 06:50 count Automat = 13.3 11.5-17 complet ed 017 % .5 ed erythro 06:50 cyte distrib ution width Blood = 12.8 4.8-10. complet leukocy 017 K/MM3 8 ed dariusz 06:50 count (number /volume ) Automat 2 = 0.3 % 0.1-12. complet ed 017 0 ed blood 06:50 eosinop hils/10 0 leukocy t Automat 2 = 0.0 0.0-0.4 complet ed 017 K/mm3 ed blood 06:50 eosinop hil count Baso % = 0.3 % 0.1-2.0 complet 017 ed 06:50 Automat 07-16-2 = 0.0 0-0.2 complet ed 017 K/MM3 ed blood 06:50 basophi l count (count/ vo Comprehensive metabolic panel (07-16-2017 06:50) Protein 07-16-2 = 5.4 6.4-8.2 complet total 017 gm/dL ed ser/alison 06:50 s ALT = 17 12-78 complet (SGPT) 017 U/L ed ser/alison 06:50 s Serum = 22 15-37 complet or 017 U/L ed plasma 06:50 asparta te aminotr ansfera Serum = 139 136-145 complet sodium 017 mmoL/L ed measure 06:50 ment Serum = 3.9 3.5-5.1 complet potassi 017 mmoL/L ed um 06:50 measure ment Serum = 160 74-106 complet or 017 mg/dL ed plasma 06:50 glucose measure ment (mas Serum = 2.3 1.3-3.2 complet globuli 017 gm/dL ed n 06:50 measure ment (mass/v olume) Estimat = 21 59- complet ed 017 ML/MIN ed glomeru 06:50 lar filtrat ion rate (GF Comment: REFERENCE RANGE: >60 ML/MIN/1.73 SQUARE METERS Comment: If this patient is -[place], then multiply the Comment: result by 1.210. Estimat = 24 50-200 complet ion of 017 ML/MIN ed creatin 06:50 ine renal clearan ce Serum = 2.2 0.55-1. complet or 017 mg/dL 02 ed plasma 06:50 creatin ine measure ment ( Carbon = 22 21.0-32 complet dioxide 017 mmoL/L .0 ed 06:50 measure ment Serum = 104 98-107 complet or 017 mmoL/L ed plasma 06:50 chlorid e measure ment (mo Serum = 8.4 8.5-10. complet or 017 mg/dL 1 ed plasma 06:50 calcium measure ment (mas Serum = 47 7-18 complet or 017 mg/dL ed plasma 06:50 urea nitroge n measure men Serum = 2.0 0.2-1.0 complet or 017 mg/dL ed plasma 06:50 total bilirub in measure m Serum = 67 46-116 complet or 017 U/L ed plasma 06:50 alkalin e phospha tase delia Serum = 3.1 3.4-5.0 complet or 017 gm/dL ed plasma 06:50 albumin measure ment (mas Serum = 1.3 1.1-1.8 complet or 017 ed plasma 06:50 albumin /globul in mass ra Glucose capillary blood glucometer (07-16-2017 06:00) Glucose 07-16-2 = 165 70-110 complet 017 mg/dl ed capilla 06:[address] Glucose capillary blood glucometer (07-15-2017 21:05) Glucose 07-15-2 = 260 70-110 complet 017 mg/dl ed capilla 21:[address] Glucose capillary blood glucometer (07-15-2017 19:25) Glucose 2 = 249 70-110 complet 017 mg/dl ed capilla 19:[address] Glucose capillary blood glucometer (07-15-2017 11:46) Glucose 07-15-2 = 193 70-110 complet 017 mg/dl ed capilla 11:[address] CBC w auto diff (07-15-2017 07:19) Blood = 161 142-424 complet platele 017 K/mm3 ed t count 07:19 Automat = 8.5 7.4-10. complet ed 017 fl 4 ed blood 07:19 platele t mean volume delia [place]ata[place] % = 4.4 % 1.7-9.3 complet 017 ed 07:19 Absolut = 0.7 0.1-1.0 complet e 017 K/mm3 ed monocyt 07:19 e count Automat = 85.3 82.2-97 complet ed 017 fl .8 ed erythro 07:19 cyte mean corpusc ular v Automat = 33.2 31.8-35 complet ed 017 g/dl .4 ed erythro 07:19 cyte mean corpusc ular h Mean = 28.3 27-31.2 complet corpusc 017 pg ed ular 07:19 hemoglo bin (MCH) determ Lymphoc = 41.4 10-50.0 complet yte 017 % ed count, 07:19 blood, automat ed Absolut = 6.1 0.7-4.5 complet e 017 K/mm3 ed lymphoc 07:19 yte count Blood = 9.8 12.2-16 complet hemoglo 017 g/dL .2 ed bin 07:19 measure ment (mass/v olum Blood = 29.5 37.0-47 complet hematoc 017 % .0 ed rit 07:19 (volume fractio n) Granulo = 53.2 37.0-80 complet cyte 017 % .0 ed percent 07:19 age Blood = 7.8 1.8-7.8 complet granulo 017 K/mm3 ed cytes 07:19 automat ed count (numb Automat = 0.6 % 0.1-12. complet ed 017 0 ed blood 07:19 eosinop hils/10 0 leukocy t Automat = 0.1 0.0-0.4 complet ed 017 K/mm3 ed blood 07:19 eosinop hil count Baso % = 0.4 % 0.1-2.0 complet 017 ed 07:19 Automat = 0.1 0-0.2 complet ed 017 K/MM3 ed blood 07:19 basophi l count (count/ vo Blood = 14.8 4.8-10. complet leukocy 017 K/MM3 8 ed dariusz 07:19 count (number /volume ) Automat = 13.5 11.5-17 complet ed 017 % .5 ed erythro 07:19 cyte distrib ution width Red = 3.46 4.2-5.4 complet blood 017 M/mm3 ed cell 07:19 count Whole blood INR measurement (07-15-2017 07:19) Comment: IS PATIENT ON ANTICOAGULANTS? N Comment: PTT RESULTS MUST BE CALLED IF PT ON HEPARIN!!! Y Prothro = 11.2 9.4-11. complet mbin 017 SECONDS 8 ed time 07:19 (PT) in platele t poor p Whole = 1.04 0.9-1.1 complet blood 017 ed INR 07:19 measure ment Comment: INDICATION INR RANGE Comment: Comment: THERAPY FOR DVT, PE, ATRIAL FIB; 2.0 - 3.0 Comment: PROPHYLAXIS FOR VTE Comment: Comment: THERAPY FOR MECHANICAL HEART 2.5 - 3.5 Comment: VALVE; PREVENTION OF SYSTEMIC Comment: EMBOLISM SECONDARY TO AMI Comprehensive metabolic panel (07-15-2017 07:19) Serum 07-15-2 = 38 7-18 complet or 017 mg/dL ed plasma 07:19 urea nitroge n measure men Serum 07-15-2 = 1.9 0.55-1. complet or 017 mg/dL 02 ed plasma 07:19 creatin ine measure ment ( Carbon 2 = 28 21.0-32 complet dioxide 017 mmoL/L .0 ed 07:19 measure ment Serum 07-15-2 = 103 98-107 complet or 017 mmoL/L ed plasma 07:19 chlorid e measure ment (mo Serum 2 = 8.7 8.5-10. complet or 017 mg/dL 1 ed plasma 07:19 calcium measure ment (mas Protein = 5.7 6.4-8.2 complet total 017 gm/dL ed ser/alison 07:19 s ALT = 11 12-78 complet (SGPT) 017 U/L ed ser/alison 07:19 s Serum = 12 15-37 complet or 017 U/L ed plasma 07:19 asparta te aminotr ansfera Serum = 140 136-145 complet sodium 017 mmoL/L ed measure 07:19 ment Serum 07-15-2 = 3.8 3.5-5.1 complet potassi 017 mmoL/L ed um 07:19 measure ment Serum 07-15-2 = 150 74-106 complet or 017 mg/dL ed plasma 07:19 glucose measure ment (mas Serum 2 = 2.7 1.3-3.2 complet globuli 017 gm/dL ed n 07:19 measure ment (mass/v olume) Estimat 07-15-2 = 25 59- complet ed 017 ML/MIN ed glomeru 07:19 lar filtrat ion rate (GF Comment: REFERENCE RANGE: >60 ML/MIN/1.73 SQUARE METERS Comment: If this patient is -[place], then multiply the Comment: result by 1.210. Estimat = 28 50-200 complet ion of 017 ML/MIN ed creatin 07:19 ine renal clearan ce Serum = 2.7 0.2-1.0 complet or 017 mg/dL ed plasma 07:19 total bilirub in measure m Serum = 75 46-116 complet or 017 U/L ed plasma 07:19 alkalin e phospha tase delia Serum = 3.0 3.4-5.0 complet or 017 gm/dL ed plasma 07:19 albumin measure ment (mas Serum = 1.1 1.1-1.8 complet or 017 ed plasma 07:19 albumin /globul in mass ra Glucose capillary blood glucometer (07-15-2017 06:37) Glucose = 153 70-110 complet 017 mg/dl ed capilla 06:[address] Glucose capillary blood glucometer (07-14-2017 20:08) Glucose = 203 70-110 complet 017 mg/dl ed capilla 20:[address] Glucose capillary blood glucometer (07-14-2017 16:23) Glucose 2 = 177 70-110 complet 017 mg/dl ed capilla 16:[address] Glucose capillary blood glucometer (07-14-2017 11:14) Glucose 2 = 300 70-110 complet 017 mg/dl ed capilla 11:[address] Glucose capillary blood glucometer (07-14-2017 06:30) Glucose 2 = 359 70-110 complet 017 mg/dl ed capilla 06:[address] Basic metabolic panel (07-14-2017 05:30) Serum = 35 7-18 complet or 017 mg/dL ed plasma 05:30 urea nitroge n measure men Serum = 9.6 8.5-10. complet or 017 mg/dL 1 ed plasma 05:30 calcium measure ment (mas Serum = 104 98-107 complet or 017 mmoL/L ed plasma 05:30 chlorid e measure ment (mo Carbon = 28 21.0-32 complet dioxide 017 mmoL/L .0 ed 05:30 measure ment Serum 11-28-2 = 1.5 0.55-1. complet or 017 mg/dL 02 ed plasma 05:30 creatin ine measure ment ( Estimat 2 = 36 50-200 complet ion of 017 ML/MIN ed creatin 05:30 ine renal clearan ce Estimat = 33 59- complet ed 017 ML/MIN ed glomeru 05:30 lar filtrat ion rate (GF Comment: REFERENCE RANGE: >60 ML/MIN/1.73 SQUARE METERS Comment: If this patient is -[place], then multiply the Comment: result by 1.210. Serum = 362 74-106 complet or 017 mg/dL ed plasma 05:30 glucose measure ment (mas Serum 2 = 4.0 3.5-5.1 complet potassi 017 mmoL/L ed um 05:30 measure ment Serum = 141 136-145 complet sodium 017 mmoL/L ed measure 05:30 ment Cardiac enzymes (07-14-2017 05:30) Serum 2 = 1.9 0-4.0 complet or 017 U/L ed plasma 05:30 creatin e kinase MB (CK-M Serum < 0.5 0.0-3.6 complet or 017 ng/mL ed plasma 05:30 creatin e kinase MB measu Serum = 26 26-192 complet or 017 U/L ed plasma 05:30 creatin e kinase measure m Serum = 0.15 0.00-0. complet or 017 ng/mL 06 ed plasma 05:30 troponi n i.cardi ac measu Comment: 0.04 - 0.49 IS AN INDETERMINANT ZONE Comment: And can be consistent with the following diseases: Comment: Comment: Trauma Critically ill patients Qureshi >30% TBSA Comment: CHF Hypothyroidism Amyloidosis Comment: Hypertension Myocarditis Sepsis Comment: Hypotension Rhabdomyolysis Vital exhaust. Comment: Postop surgery Pulmonary embolism CVA Comment: Renal failure Acute neurological disease Atrial fib. CBC w auto diff (07-14-2017 05:30) Automat 2 = 0.0 0-0.2 complet ed 017 K/MM3 ed blood 05:30 basophi l count (count/ vo Baso % = 0.2 % 0.1-2.0 complet 017 ed 05:30 Automat = 0.0 0.0-0.4 complet ed 017 K/mm3 ed blood 05:30 eosinop hil count Automat = 0.1 % 0.1-12. complet ed 017 0 ed blood 05:30 eosinop hils/10 0 leukocy t Blood = 12.5 1.8-7.8 complet granulo 017 K/mm3 ed cytes 05:30 automat ed count (numb Granulo = 77.3 37.0-80 complet cyte 017 % .0 ed percent 05:30 age Blood = 34.5 37.0-47 complet hematoc 017 % .0 ed rit 05:30 (volume fractio n) Blood = 11.2 12.2-16 complet hemoglo 017 g/dL .2 ed bin 05:30 measure ment (mass/v olum Absolut = 2.9 0.7-4.5 complet e 017 K/mm3 ed lymphoc 05:30 yte count Lymphoc = 17.7 10-50.0 complet yte 017 % ed count, 05:30 blood, automat ed Mean = 27.7 27-31.2 complet corpusc 017 pg ed ular 05:30 hemoglo bin (MCH) determ Automat = 32.5 31.8-35 complet ed 017 g/dl .4 ed erythro 05:30 cyte mean corpusc ular h Automat = 85.1 82.2-97 complet ed 017 fl .8 ed erythro 05:30 cyte mean corpusc ular v Absolut = 0.7 0.1-1.0 complet e 017 K/mm3 ed monocyt 05:30 e count Cata[place] % = 4.6 % 1.7-9.3 complet 017 ed 05:30 Automat = 8.6 7.4-10. complet ed 017 fl 4 ed blood 05:30 platele t mean volume delia Blood = 174 142-424 complet platele 017 K/mm3 ed t count 05:30 Red = 4.05 4.2-5.4 complet blood 017 M/mm3 ed cell 05:30 count Automat = 13.4 11.5-17 complet ed 017 % .5 ed erythro 05:30 cyte distrib ution width Blood = 16.0 4.8-10. complet leukocy 017 K/MM3 8 ed dariusz 05:30 count (number /volume ) Differential panel, method unspecified - (07-14-2017 05:30) Automat = 5 % 0-8 complet ed 017 ed blood 05:30 band neutrop hil percent a LYMPH 13 % 10-50 complet 017 ed 05:30 Monocyt = 5 % 2-9 complet e % 017 ed 05:30 Platele NORMAL complet t 017 NORMAL ed estimat 05:30 L e Neutrop = 77 % 42-76 complet hil 017 ed count 05:30 Blood = 100 complet total 017 #CELLS ed cell 05:30 count Differential panel, method unspecified - (07-14-2017 05:30) LYMPH 13 % 10% - Normal complet 017 50% ed 05:30 Platele NORMAL complet ts 017 ed [Presen 05:30 ce] in Blood by Light microsc opy Cardiac enzymes (07-14-2017 03:05) Serum = 1.8 0-4.0 complet or 017 U/L ed plasma 03:05 creatin e kinase MB (CK-M Serum < 0.5 0.0-3.6 complet or 017 ng/mL ed plasma 03:05 creatin e kinase MB measu Serum = 28 26-192 complet or 017 U/L ed plasma 03:05 creatin e kinase measure m Serum = 0.16 0.00-0. complet or 017 ng/mL 06 ed plasma 03:05 troponi n i.cardi ac measu Comment: 0.04 - 0.49 IS AN INDETERMINANT ZONE Comment: And can be consistent with the following diseases: Comment: Comment: Trauma Critically ill patients Qureshi >30% TBSA Comment: CHF Hypothyroidism Amyloidosis Comment: Hypertension Myocarditis Sepsis Comment: Hypotension Rhabdomyolysis Vital exhaust. Comment: Postop surgery Pulmonary embolism CVA Comment: Renal failure Acute neurological disease Atrial fib. Serum or plasma troponin i.cardiac measu (07-13-2017 22:00) Serum 11-27-2 = 0.15 0.00-0. complet or 017 ng/mL 06 ed plasma 22:00 troponi n i.cardi ac measu Comment: 0.04 - 0.49 IS AN INDETERMINANT ZONE Comment: And can be consistent with the following diseases: Comment: Comment: Trauma Critically ill patients Qureshi >30% TBSA Comment: CHF Hypothyroidism Amyloidosis Comment: Hypertension Myocarditis Sepsis Comment: Hypotension Rhabdomyolysis Vital exhaust. Comment: Postop surgery Pulmonary embolism CVA Comment: Renal failure Acute neurological disease Atrial fib. Cardiac enzymes (07-13-2017 19:55) Serum 07-13-2 = 1.6 0-4.0 complet or 017 U/L ed plasma 19:55 creatin e kinase MB (CK-M Serum 2 < 0.5 0.0-3.6 complet or 017 ng/mL ed plasma 19:55 creatin e kinase MB measu Serum 07-13-2 = 32 26-192 complet or 017 U/L ed plasma 19:55 creatin e kinase measure m Serum 07-13-2 = 0.16 0.00-0. complet or 017 ng/mL 06 ed plasma 19:55 troponi n i.cardi ac measu Comment: 0.04 - 0.49 IS AN INDETERMINANT ZONE Comment: And can be consistent with the following diseases: Comment: Comment: Trauma Critically ill patients Qureshi >30% TBSA Comment: CHF Hypothyroidism Amyloidosis Comment: Hypertension Myocarditis Sepsis Comment: Hypotension Rhabdomyolysis Vital exhaust. Comment: Postop surgery Pulmonary embolism CVA Comment: Renal failure Acute neurological disease Atrial fib. Comprehensive metabolic panel (07-13-2017 19:55) Protein --2 = 7.1 6.4-8.2 complet total 017 gm/dL ed ser/alison 19:55 s Serum 07-13-2 = 1.4 1.1-1.8 complet or 017 ed plasma 19:55 albumin /globul in mass ra Serum 07-13-2 = 4.2 3.4-5.0 complet or 017 gm/dL ed plasma 19:55 albumin measure ment (mas Serum 07-13-2 = 151 46-116 complet or 017 U/L ed plasma 19:55 alkalin e phospha tase delia Serum = 1.0 0.2-1.0 complet or 017 mg/dL ed plasma 19:55 total bilirub in measure m Serum = 37 7-18 complet or 017 mg/dL ed plasma 19:55 urea nitroge n measure men Serum = 9.8 8.5-10. complet or 017 mg/dL 1 ed plasma 19:55 calcium measure ment (mas Serum = 103 98-107 complet or 017 mmoL/L ed plasma 19:55 chlorid e measure ment (mo Carbon = 31 21.0-32 complet dioxide 017 mmoL/L .0 ed 19:55 measure ment Serum = 1.8 0.55-1. complet or 017 mg/dL 02 ed plasma 19:55 creatin ine measure ment ( Estimat = 31 50-200 complet ion of 017 ML/MIN ed creatin 19:55 ine renal clearan ce Estimat = 27 59- complet ed 017 ML/MIN ed glomeru 19:55 lar filtrat ion rate (GF Comment: REFERENCE RANGE: >60 ML/MIN/1.73 SQUARE METERS Comment: If this patient is -[place], then multiply the Comment: result by 1.210. Serum = 2.9 1.3-3.2 complet globuli 017 gm/dL ed n 19:55 measure ment (mass/v olume) Serum = 329 74-106 complet or 017 mg/dL ed plasma 19:55 glucose measure ment (mas Serum = 4.0 3.5-5.1 complet potassi 017 mmoL/L ed um 19:55 measure ment Serum = 141 136-145 complet sodium 017 mmoL/L ed measure 19:55 ment Serum = 17 15-37 complet or 017 U/L ed plasma 19:55 asparta te aminotr ansfera ALT = 16 12-78 complet (SGPT) 017 U/L ed ser/alison 19:55 s CBC w auto diff (07-13-2017 19:55) Automat 2 = 0.1 0-0.2 complet ed 017 K/MM3 ed blood 19:55 basophi l count (count/ vo Baso % = 0.4 % 0.1-2.0 complet 017 ed 19:55 Automat = 0.2 0.0-0.4 complet ed 017 K/mm3 ed blood 19:55 eosinop hil count Automat = 1.4 % 0.1-12. complet ed 017 0 ed blood 19:55 eosinop hils/10 0 leukocy t Blood = 8.0 1.8-7.8 complet granulo 017 K/mm3 ed cytes 19:55 automat ed count (numb Granulo = 67.0 37.0-80 complet cyte 017 % .0 ed percent 19:55 age Blood = 35.9 37.0-47 complet hematoc 017 % .0 ed rit 19:55 (volume fractio n) Blood = 11.6 12.2-16 complet hemoglo 017 g/dL .2 ed bin 19:55 measure ment (mass/v olum Absolut = 3.3 0.7-4.5 complet e 017 K/mm3 ed lymphoc 19:55 yte count Lymphoc = 27.4 10-50.0 complet yte 017 % ed count, 19:55 blood, automat ed Mean = 27.6 27-31.2 complet corpusc 017 pg ed ular 19:55 hemoglo bin (MCH) determ Automat = 32.5 31.8-35 complet ed 017 g/dl .4 ed erythro 19:55 cyte mean corpusc ular h Automat = 85.0 82.2-97 complet ed 017 fl .8 ed erythro 19:55 cyte mean corpusc ular v Absolut = 0.5 0.1-1.0 complet e 017 K/mm3 ed monocyt 19:55 e count [place]ata[place] % = 3.8 % 1.7-9.3 complet 017 ed 19:55 Automat = 8.5 7.4-10. complet ed 017 fl 4 ed blood 19:55 platele t mean volume delia Blood = 186 142-424 complet platele 017 K/mm3 ed t count 19:55 Red = 4.22 4.2-5.4 complet blood 017 M/mm3 ed cell 19:55 count Automat = 13.4 11.5-17 complet ed 017 % .5 ed erythro 19:55 cyte distrib ution width Blood = 11.9 4.8-10. complet leukocy 017 K/MM3 8 ed dariusz 19:55 count (number /volume ) Lipase measurement (07-13-2017 19:55) Lipase = 312 73-393 complet measure 017 U/L ed ment 19:55
--- OUTSIDE RECORDS SUMMARY | 2017-07-19 11:46 | External Medical Summary Rpt | CCD ---
Demographics Preferred Language Upper Sor[place] Marital Status Unknown Yazdanism Affiliation Unknown Race Unknown Ethnic Group Unknown Author Author , DENISE WALKER Address Unknown Phone Immunization No patient found.
--- OUTSIDE RECORDS SUMMARY | 2017-07-19 11:46 | External Medical Summary Rpt | CCD ---
Author Author , DENISE WALKER Address Unknown Phone Purpose Continuity of Care Document - 05-01-2017 [...] 6.4-8.2 complet total 017 gm/dL ed ser/alison 06:21 s ALT = 10 12-78 complet [...] SQUARE METERS Comment: If this patient is -[place], then multiply the Comment: result by 1.210. [...] blood 06:21 platele t mean volume delia [place] % = 5.0 % 1.7-9.3 complet 017 [...] 017 K/mm3 ed monocyt 06:50 e count [place] % = 4.5 % 1.7-9.3 complet 017 [...] SQUARE METERS Comment: If this patient is [place], then multiply the Comment: result by 1.210. [...] blood 07:19 platele t mean volume delia [place] % = 4.4 % 1.7-9.3 complet 017 [...] SQUARE METERS Comment: If this patient is [place], then multiply the Comment: result by 1.210. [...] SQUARE METERS Comment: If this patient is [place], then multiply the Comment: result by 1.210. [...] 017 K/mm3 ed monocyt 05:30 e count [place] % = 4.6 % 1.7-9.3 complet 017 [...] SQUARE METERS Comment: If this patient is [place], then multiply the Comment: result by 1.210. [...] 017 K/mm3 ed monocyt 19:55 e count [place] % = 3.8 % 1.7-9.3 complet 017 [...]
--- OUTSIDE RECORDS SUMMARY | 2017-07-19 11:47 | External Medical Summary Rpt ---
Author Author DULCE MARIACRICKET Cohen, [employer] Address Unknown Phone Unavailable Results Glucose [Mass/volume] in Capillary blood by Glucometer Observa Value Referen Units Interpr Notes Date tion ce etation Range Glucose 70 - 110 mg/dl High No Dec 2 [Mass/vol informati 2017 ume] in on in 11:14 AM Capillary source blood by data Glucomete r Glucose [Mass/volume] in Capillary blood by Glucometer Observa Value Referen Units Interpr Notes Date tion ce etation Range Glucose 70 - 110 mg/dl High No Jul 2 [Mass/vol informati 2016 6:04 ume] in on in AM Capillary source blood by data Glucomete r Glucose [Mass/volume] in Capillary blood by Glucometer Observa Value Referen Units Interpr Notes Date tion ce etation Range Glucose 70 - 110 mg/dl High No Jul 1 [Mass/vol informati 2017 9:24 ume] in on in PM Capillary source blood by data Glucomete r Glucose [Mass/volume] in Capillary blood by Glucometer Observa Value Referen Units Interpr Notes Date tion ce etation Range Glucose 70 - 110 mg/dl High No Jul 1 [Mass/vol informati 2017 4:33 ume] in on in PM Capillary source blood by data Glucomete r Glucose [Mass/volume] in Capillary blood by Glucometer Observa Value Referen Units Interpr Notes Date tion ce etation Range Glucose 70 - 110 mg/dl High No Jul 1 [Mass/vol informati 2016 ume] in on in 11:21 AM Capillary source blood by data Glucomete r CBC W Auto Differential panel in Blood Observa Value Referen Units Interpr Notes Date tion ce etation Range Basophils 0 - 0.2 K/MM3 Normal No Jul 17 informati 2016 6:21 [#/volume on in AM ] in source Blood by data Automated count Basophils 0.1 - 2.0 % Normal No Jul 17 informati 2016 6:21 leukocyte on in AM s in source Blood by data Automated count Eosinophi 0.0 - 0.4 K/mm3 Normal No Jul 1 ls informati 2016 6:21 [#/volume on in AM ] in source Blood by data Automated count Eosinophi 0.1 - % Normal No Jul 17 ls/100 12.0 informati 2016 6:21 leukocyte on in AM s in source Blood by data Automated count Granulocy 1.8 - 7.8 K/mm3 Normal No Jul 17 dariusz informati 2016 6:21 [#/volume on in AM ] in source Blood by data Automated count Granulocy 37.0 - % Normal No Jul 17 dariusz/100 80.0 informati 2016 6:21 leukocyte on in AM s in source Blood by data Automated count Hematocri 37.0 - % Low No Jul 17 t [Volume 47.0 informati 2016 6:21 on in AM Fraction] source of Blood data Hemoglobi 12.2 - g/dL Low No Jul 17 n 16.2 informati 2016 6:21 [Mass/vol on in AM ume] in source Blood data Lymphocyt 0.7 - 4.5 K/mm3 Normal No Jul 17 es informati 2017 6:21 [#/volume on in AM ] in source Unspecifi data ed specimen by Automated count Lymphocyt 10 - 50.0 % Normal No Jul 17 es informati 2016 6:21 [#/volume on in AM ] in source Unspecifi data ed specimen by Automated count Erythrocy 27 - 31.2 pg Normal No Jul 17 te mean informati 2016 6:21 corpuscul on in AM ar source hemoglobi data n [Entitic mass] Erythrocy 31.8 - g/dl Normal No Jul 17 te mean 35.4 informati 2016 6:21 corpuscul on in AM ar source hemoglobi data n concentra tion [Mass/vol ume] by Automated count Erythrocy 82.2 - fl Normal No Jul 17 te mean 97.8 informati 2016 6:21 corpuscul on in AM ar volume source [Entitic data volume] by Automated count Monocytes 0.1 - 1.0 K/mm3 Normal No Jul 17 informati 2016 6:21 [#/volume on in AM ] in source Blood by data Automated count Monocytes 1.7 - 9.3 % Normal No Dec 1 /100 informati 2016 6:21 leukocyte on in AM s in source Blood by data Automated count Platelet 7.4 - fl Normal No Jul 17 mean 10.4 informati 2017 6:21 volume on in AM [Entitic source volume] data in Blood by Automated count Platelets 142 - 424 K/mm3 Normal No Dec 1 informati 2017 6:21 [#/volume on in AM ] in source Blood data Erythrocy 4.2 - 5.4 M/mm3 Low No Jul 1 dariusz informati 2017 6:21 [#/volume on in AM ] in source Amniotic data fluid Erythrocy 11.5 - % Normal No Jul 17 te 17.5 informati 2017 6:21 distribut on in AM ion width source [Entitic data volume] by Automated count Leukocyte 4.8 - K/MM3 Normal No Jul 17 s 10.8 informati 2017 6:21 [#/volume on in AM ] in source Blood data Comprehensive metabolic 2000 panel in Serum or Plasma Observa Value Referen Units Interpr Notes Date tion ce etation Range Albumin/G 1.1 - 1.8 No Low No Dec 1 lobulin informati informati 2017 6:21 [Mass on in on in AM ratio] in source source Serum or data data Plasma Albumin 3.4 - 5.0 gm/dL Low No Jul 17 [Mass/vol informati 2017 6:21 ume] in on in AM Serum or source Plasma data Alkaline 46 - 116 U/L Normal No Jul 17 phosphata informati 2017 6:21 se on in AM [Enzymati source c data activity/ volume] in Serum or Plasma Bilirubin 0.2 - 1.0 mg/dL High No Jul 17 .total informati 2017 6:21 [Mass/vol on in AM ume] in source Serum or data Plasma Urea 7 - 18 mg/dL High No Jul 17 nitrogen informati 2017 6:21 [Mass/vol on in AM ume] in source Serum or data Plasma Calcium 8.5 - mg/dL Normal No Dec [Mass/vol 10.1 informati 2017 6:21 ume] in on in AM Serum or source Plasma data Chloride 98 - 107 mmoL/L Normal No Jul 17 [Moles/vo informati 2017 6:21 lume] in on in AM Serum or source Plasma data Carbon 21.0 - mmoL/L Normal No Jul 17 dioxide, 32.0 informati 2017 6:21 total on in AM [Moles/vo source lume] in data Serum or Plasma Creatinin 0.55 - mg/dL High No Jul 17 e 1.02 informati 2017 6:21 [Mass/vol on in AM ume] in source Serum or data Plasma Creatinin 50 - 200 ML/MIN Low No Jul 17 e renal informati 2017 6:21 clearance on in AM source predicted data by Cockcroft -Gault formula Estimated 59- ML/MIN Low REFERENCE Dec RANGE: 2017 6:21 glomerula >60 AM r ML/MIN/1. filtratio 73 SQUARE n rate METERSIf (GF this patient is -A merican, then multiply theresult by 1.210. Globulin 1.3 - 3.2 gm/dL No No Jul 17 [Mass/vol informati informati 2017 6:21 ume] in on in on in AM Serum source source data data Glucose 74 - 106 mg/dL High No Jul 17 [Mass/vol informati 2016 6:21 ume] in on in AM Serum or source Plasma data Potassium 3.5 - 5.1 mmoL/L Normal No Jul 17 informati 2016 6:21 [Moles/vo on in AM lume] in source Serum or data Plasma Sodium 136 - 145 mmoL/L Normal No Jul 17 [Moles/vo informati 2017 6:21 lume] in on in AM Serum or source Plasma data Aspartate 15 - 37 U/L No No Jul 17 informati informati 2017 6:21 aminotran on in on in AM sferase source source [Enzymati data data c activity/ volume] in Serum or Plasma Alanine 12 - 78 U/L Low No Dec aminotran informati 2017 6:21 sferase on in AM [Enzymati source c data activity/ volume] in Serum or Plasma Protein 6.4 - 8.2 gm/dL Low No Jul 17 [Mass/vol informati 2016 6:21 ume] in on in AM Serum or source Plasma data Glucose [Mass/volume] in Capillary blood by Glucometer Observa Value Referen Units Interpr Notes Date tion ce etation Range Glucose 70 - 110 mg/dl High No Jul 17 [Mass/vol informati 2017 6:07 ume] in on in AM Capillary source blood by data Glucomete r Glucose [Mass/volume] in Capillary blood by Glucometer Observa Value Referen Units Interpr Notes Date tion ce etation Range Glucose 70 - 110 mg/dl High No Jul 16 [Mass/vol informati 2017 9:19 ume] in on in PM Capillary source blood by data Glucomete r Glucose [Mass/volume] in Capillary blood by Glucometer Observa Value Referen Units Interpr Notes Date tion ce etation Range Glucose 70 - 110 mg/dl High No Jul 16 [Mass/vol informati 2016 4:39 ume] in on in PM Capillary source blood by data Glucomete r Glucose [Mass/volume] in Capillary blood by Glucometer Observa Value Referen Units Interpr Notes Date tion ce etation Range Glucose 70 - 110 mg/dl High No Jul 16 [Mass/vol informati 2016 ume] in on in 11:24 AM Capillary source blood by data Glucomete r Comprehensive metabolic 2000 panel in Serum or Plasma Observa Value Referen Units Interpr Notes Date ti ce etation Range Albumin/G 1.1 - 1.8 No Normal Jul 16 lobulin informati informati 2017 6:50 [Mass on in on in AM ratio] in source source Serum or data data Plasma Albumin 3.4 - 5.0 gm/dL Low Jul 16 [Mass/vol informati 2016 6:50 ume] in on in AM Serum or source Plasma data Alkaline 46 - 116 U/L Normal No Jul 16 phosphata informati 2017 6:50 se on in AM [Enzymati source c data activity/ volume] in Serum or Plasma Bilirubin 0.2 - 1.0 mg/dL High Jul 16 .total informati 2016 6:50 [Mass/vol on in AM ume] in source Serum or data Plasma Urea 7 - 18 mg/dL High Jul 16 nitrogen informati 2017 6:50 [Mass/vol on in AM ume] in source Serum or data Plasma Calcium 8.5 - mg/dL Low No Jul 16 [Mass/vol 10.1 informati 2017 6:50 ume] in on in AM Serum or source Plasma data Chloride 98 - 107 mmoL/L Normal No Jul 16 [Moles/vo informati 2017 6:50 lume] in on in AM Serum or source Plasma data Carbon 21.0 - mmoL/L Normal No Jul 16 dioxide, 32.0 informati 2017 6:50 total on in AM [Moles/vo source lume] in data Serum or Plasma Creatinin 0.55 - mg/dL High No Jul 16 e 1.02 informati 2017 6:50 [Mass/vol on in AM ume] in source Serum or data Plasma Creatinin 50 - 200 ML/MIN Low No Jul 16 e renal informati 2016 6:50 clearance on in AM source predicted data by Cockcroft -Gault formula Estimated 59- ML/MIN Low REFERENCE Jul 16 RANGE: 2016 6:50 glomerula >60 AM r ML/MIN/1. filtratio 73 SQUARE n rate METERSIf (GF this patient is -A merican, then multiply theresult by 1.210. Globulin 1.3 - 3.2 gm/dL Normal Jul 16 [Mass/vol informati 2016 6:50 ume] in on in AM Serum source data Glucose 74 - 106 mg/dL High No Jul 16 [Mass/vol informati 2016 6:50 ume] in on in AM Serum or source Plasma data Potassium 3.5 - 5.1 mmoL/L Normal Jul 16 informati 2016 6:50 [Moles/vo on in AM lume] in source Serum or data Plasma Sodium 136 - 145 mmoL/L Normal Jul 16 [Moles/vo ati 2016 6:50 lume] in on in AM Serum or source Plasma data Aspartate 15 - 37 U/L No Jul 16 informati informati 2016 6:50 aminotran on in on in AM sferase source source [Enzymati data data c activity/ volume] in Serum or Plasma Alanine 12 - 78 U/L No Jul 16 aminotran informati informati 2016 6:50 sferase on in on in AM [Enzymati source source c data data activity/ volume] in Serum or Plasma Protein 6.4 - 8.2 gm/dL Low No Jul 16 [Mass/vol informati 2016 6:50 ume] in on in AM Serum or source Plasma data CBC W Auto Differential panel in Blood Observa Value Referen Units Interpr Notes Date tion ce etation Range Basophils 0 - 0.2 K/MM3 Normal No Jul 16 informati 2016 6:50 [#/volume on in AM ] in source Blood by data Automated count Basophils 0.1 - 2.0 % Normal No Jul 16 /100 informati 2016 6:50 leukocyte on in AM s in source Blood by data Automated count Eosinophi 0.0 - 0.4 K/mm3 Normal No Jul 16 ls ati 2016 6:50 [#/volume on in AM ] in source Blood by data Automated count Eosinophi 0.1 - % Normal No Jul 16 ls/100 12.0 informati 2017 6:50 leukocyte on in AM s in source Blood by data Automated count Granulocy 1.8 - 7.8 K/mm3 High No Jul 16 dariusz informati 2016 6:50 [#/volume on in AM ] in source Blood by data Automated count Granulocy 37.0 - % Normal No Jul 16 dariusz/100 80.0 informati 2016 6:50 leukocyte on in AM s in source Blood by data Automated count Hematocri 37.0 - % Low No Jul 16 t [Volume 47.0 informati 2016 6:50 on in AM Fraction] source of Blood data Hemoglobi 12.2 - g/dL Low No Jul 16 n 16.2 informati 2017 6:50 [Mass/vol on in AM ume] in source Blood data Lymphocyt 0.7 - 4.5 K/mm3 Normal No Jul 16 es informati 2016 6:50 [#/volume on in AM ] in source Unspecifi data ed specimen by Automated count Lymphocyt 10 - 50.0 % Normal No Jul 16 es informati 2016 6:50 [#/volume on in AM ] in source Unspecifi data ed specimen by Automated count Erythrocy 27 - 31.2 pg Normal Jul 16 te mean informati 2016 6:50 corpuscul on in AM ar source hemoglobi data n [Entitic mass] Erythrocy 31.8 - g/dl Normal No Jul 16 te mean 35.4 informati 2016 6:50 corpuscul on in AM ar source hemoglobi data n concentra tion [Mass/vol ume] by Automated count Erythrocy 82.2 - fl Normal Jul 16 te mean 97.8 informati 2016 6:50 corpuscul on in AM ar volume source [Entitic data volume] by Automated count Monocytes 0.1 - 1.0 K/mm3 Normal No Jul 16 informati 2016 6:50 [#/volume on in AM ] in source Blood by data Automated count Monocytes 1.7 - 9.3 % Normal No Jul 16 / informati 2017 6:50 leukocyte on in AM s in source Blood by data Automated count Platelet 7.4 - fl Normal Jul 16 mean 10.4 informati 2016 6:50 volume on in AM [Entitic source volume] data in Blood by Automated count Platelets 142 - 424 K/mm3 Normal No Jul 16 inform2016 6:50 [#/volume on in AM ] in source Blood data Erythrocy 4.2 - 5.4 M/mm3 Low No Jul 16 dariusz informati 2016 6:50 [#/volume on in AM ] in source Amniotic data fluid Erythrocy 11.5 - % Normal No Jul 16 te 17.5 informati 2016 6:50 distribut on in AM ion width source [Entitic data volume] by Automated count Leukocyte 4.8 - K/MM3 High No Jul 16 s 10.8 informati 2016 6:50 [#/volume on in AM ] in source Blood data Glucose [Mass/volume] in Capillary blood by Glucometer Observa Value Referen Units Interpr Notes Date tion ce etation Range Glucose 70 - 110 mg/dl High Jul 16 [Mass/vol informati 2016 6:00 ume] in on in AM Capillary source blood by data Glucomete r Glucose [Mass/volume] in Capillary blood by Glucometer Observa Value Referen Units Interpr Notes ti ce etation Range Glucose 70 - 110 mg/dl High Jul 15 [Mass/vol informati 2016 9:05 ume] in on in PM Capillary source blood by data Glucomete r Glucose [Mass/volume] in Capillary blood by Glucometer Observa Value Referen Units Interpr Notes ti ce etation Range Glucose 70 - 110 mg/dl High Jul 15 [Mass/vol informati 2016 7:25 ume] in on in PM Capillary source blood by data Glucomete r Glucose [Mass/volume] in Capillary blood by Glucometer Observa Value Referen Units Interpr Notes ti ce etation Range Glucose 70 - 110 mg/dl High Jul 15 [Mass/vol informati 2016 ume] in on in 11:46 AM Capillary source blood by data Glucomete r CBC W Auto Differential panel in Blood Observa Value Referen Units Interpr Notes Date ti ce etation Range Basophils 0 - 0.2 K/MM3 Normal No Jul 15 inform2016 7:19 [#/volume on in AM ] in source Blood by data Automated count Basophils 0.1 - 2.0 % Normal No Jul 15 /100 informati 2016 7:19 leukocyte on in AM s in source Blood by data Automated count Eosinophi 0.0 - 0.4 K/mm3 Normal No Jul 15 ls informati 2016 7:19 [#/volume on in AM ] in source Blood by data Automated count Eosinophi 0.1 - % Normal No Jul 15 ls/100 12.0 informati 2016 7:19 leukocyte on in AM s in source Blood by data Automated count Granulocy 1.8 - 7.8 K/mm3 Normal No Jul 15 dariusz informati 2016 7:19 [#/volume on in AM ] in source Blood by data Automated count Granulocy 37.0 - % Normal No Jul 15 dariusz/100 80.0 informati 2016 7:19 leukocyte on in AM s in source Blood by data Automated count Hematocri 37.0 - % Low No Jul 15 t [Volume 47.0 informati 2016 7:19 on in AM Fraction] source of Blood data Hemoglobi 12.2 - g/dL Low No Jul 15 n 16.2 informati 2016 7:19 [Mass/vol on in AM ume] in source Blood data Lymphocyt 0.7 - 4.5 K/mm3 High No Jul 15 es informati 2016 7:19 [#/volume on in AM ] in source Unspecifi data ed specimen by Automated count Lymphocyt 10 - 50.0 % Normal No Jul 15 es informati 2016 7:19 [#/volume on in AM ] in source Unspecifi data ed specimen by Automated count Erythrocy 27 - 31.2 pg Normal No Jul 15 te mean informati 2016 7:19 corpuscul on in AM ar source hemoglobi data n [Entitic mass] Erythrocy 31.8 - g/dl Normal Jul 15 te mean 35.4 informati 2016 7:19 corpuscul on in AM ar source hemoglobi data n concentra tion [Mass/vol ume] by Automated count Erythrocy 82.2 - fl Normal Jul 15 te mean 97.8 informati 2016 7:19 corpuscul on in AM ar volume source [Entitic data volume] by Automated count Monocytes 0.1 - 1.0 K/mm3 Normal No Jul 15 informati 2016 7:19 [#/volume on in AM ] in source Blood by data Automated count Monocytes 1.7 - 9.3 % Normal No Jul 15 /100 informati 2016 7:19 leukocyte on in AM s in source Blood by data Automated count Platelet 7.4 - fl Normal Jul 15 mean 10.4 informati 2017 7:19 volume on in AM [Entitic source volume] data in Blood by Automated count Platelets 142 - 424 K/mm3 Normal No Jul 15 informati 2016 7:19 [#/volume on in AM ] in source Blood data Erythrocy 4.2 - 5.4 M/mm3 Low No Jul 15 dariusz informati 2016 7:19 [#/volume on in AM ] in source Amniotic data fluid Erythrocy 11.5 - % Normal Jul 15 te 17.5 informati 2016 7:19 distribut on in AM ion width source [Entitic data volume] by Automated count Leukocyte 4.8 - K/MM3 High No Jul 15 s 10.8 informati 2016 7:19 [#/volume on in AM ] in source Blood data INR in Blood by Coagulation assay Observa Value Referen Units Interpr Notes Date tion ce etation Range IS PATIENT ON ANTICOAGULANTS? N PTT RESULTS MUST BE CALLED IF PT ON HEPARIN!!! Y INR in 0.9 - 1.1 No Normal INDICATIO Jul 15 Blood by informati N 2016 7:19 Coagulati on in AM on assay source INR data RANGETHER APY FOR DVT, PE, ATRIAL FIB; 2.0 - 3.0PROPHY LAXIS FOR VTETHERAP Y FOR MECHANICA L HEART 2.5 - 3.5VALVE; PREVENTIO N OF SYSTEMICE MBOLISM SECONDARY TO AMI Prothromb 9.4 - SECONDS Normal Jul 15 in time 11.8 informati 2016 7:19 (PT) in on in AM Platelet source poor data plasma by Coagulati on assay Comprehensive metabolic 2000 panel in Serum or Plasma Observa Value Referen Units Interpr Notes Date tion ce etation Range Albumin/G 1.1 - 1.8 No No Jul 15 lobulin informati informati informati 2016 7:19 [Mass on in on in on in AM ratio] in source source source Serum or data data data Plasma Albumin 3.4 - 5.0 gm/dL Low Jul 15 [Mass/vol informati 2016 7:19 ume] in on in AM Serum or source Plasma data Alkaline 46 - 116 U/L Normal Jul 15 phosphata informati 2016 7:19 se on in AM [Enzymati source c data activity/ volume] in Serum or Plasma Bilirubin 0.2 - 1.0 mg/dL High Jul 15 .total informati 2017 7:19 [Mass/vol on in AM ume] in source Serum or data Plasma Urea 7 - 18 mg/dL High No Jul 15 nitrogen informati 2016 7:19 [Mass/vol on in AM ume] in source Serum or data Plasma Calcium 8.5 - mg/dL Normal No Jul 15 [Mass/vol 10.1 informati 2016 7:19 ume] in on in AM Serum or source Plasma data Chloride 98 - 107 mmoL/L Normal No Jul 15 [Moles/vo informati 2016 7:19 lume] in on in AM Serum or source Plasma data Carbon 21.0 - mmoL/L Normal No Jul 15 dioxide, 32.0 informati 2016 7:19 total on in AM [Moles/vo source lume] in data Serum or Plasma Creatinin 0.55 - mg/dL High No Jul 15 e 1.02 informati 2016 7:19 [Mass/vol on in AM ume] in source Serum or data Plasma Creatinin 50 - 200 ML/MIN Low No Jul 15 e renal informati 2016 7:19 clearance on in AM source predicted data by Cockcroft -Gault formula Estimated 59- ML/MIN Low REFERENCE Jul 15 RANGE: 2017 7:19 glomerula >60 AM r ML/MIN/1. filtratio 73 SQUARE n rate METERSIf (GF this patient is -A merican, then multiply theresult by 1.210. Globulin 1.3 - 3.2 gm/dL No Jul 15 [Mass/vol informati informati 2016 7:19 ume] in on in on in AM Serum source source data data Glucose 74 - 106 mg/dL High Jul 15 [Mass/vol informati 2016 7:19 ume] in on in AM Serum or source Plasma data Potassium 3.5 - 5.1 mmoL/L Normal No Jul 15 informati 2016 7:19 [Moles/vo on in AM lume] in source Serum or data Plasma Sodium 136 - 145 mmoL/L Normal Jul 15 [Moles/vo informati 2016 7:19 lume] in on in AM Serum or source Plasma data Aspartate 15 - 37 U/L Low No Jul 15 informati 2016 7:19 aminotran on in AM sferase source [Enzymati data c activity/ volume] in Serum or Plasma Alanine 12 - 78 U/L Low No Nov 29 aminotran informati 2016 7:19 sferase on in AM [Enzymati source c data activity/ volume] in Serum or Plasma Protein 6.4 - 8.2 gm/dL Low No Jul 15 [Mass/vol informati 2016 7:19 ume] in on in AM Serum or source Plasma data Glucose [Mass/volume] in Capillary blood by Glucometer Observa Value Referen Units Interpr Notes Date tion ce etation Range Glucose 70 - 110 mg/dl High No Jul 15 [Mass/vol informati 2016 6:37 ume] in on in AM Capillary source blood by data Glucomete r Glucose [Mass/volume] in Capillary blood by Glucometer Observa Value Referen Units Interpr Notes Date tion ce etation Range Glucose 70 - 110 mg/dl High No Jul 14 [Mass/vol informati 2016 8:08 ume] in on in PM Capillary source blood by data Glucomete r Glucose [Mass/volume] in Capillary blood by Glucometer Observa Value Referen Units Interpr Notes Date tion ce etation Range Glucose 70 - 110 mg/dl High No Jul 14 [Mass/vol informati 2016 4:23 ume] in on in PM Capillary source blood by data Glucomete r Glucose [Mass/volume] in Capillary blood by Glucometer Observa Value Referen Units Interpr Notes Date tion ce etation Range Glucose 70 - 110 mg/dl High No Jul 14 [Mass/vol informati 2016 ume] in on in 11:14 AM Capillary source blood by data Glucomete r Glucose [Mass/volume] in Capillary blood by Glucometer Observa Value Referen Units Interpr Notes Date ti ce etation Range Glucose 70 - 110 mg/dl High No Jul 14 [Mass/vol alert informati 2016 6:30 ume] in on in AM Capillary source blood by data Glucomete r CBC W Auto Differential panel in Blood Observa Value Referen Units Interpr Notes Date tion ce etation Range Basophils 0 - 0.2 K/MM3 Normal No Jul 14 informati 2016 5:30 [#/volume on in AM ] in source Blood by data Automated count Basophils 0.1 - 2.0 % Normal No Jul 14 /100 informati 2016 5:30 leukocyte on in AM s in source Blood by data Automated count Eosinophi 0.0 - 0.4 K/mm3 Normal No Jul 14 ls informati 2016 5:30 [#/volume on in AM ] in source Blood by data Automated count Eosinophi 0.1 - % Normal No Jul 14 ls/100 12.0 informati 2016 5:30 leukocyte on in AM s in source Blood by data Automated count Granulocy 1.8 - 7.8 K/mm3 High No Jul 14 dariusz informati 2016 5:30 [#/volume on in AM ] in source Blood by data Automated count Granulocy 37.0 - % Normal No Jul 14 dariusz/100 80.0 informati 2016 5:30 leukocyte on in AM s in source Blood by data Automated count Hematocri 37.0 - % Low No Jul 14 t [Volume 47.0 informati 2016 5:30 on in AM Fraction] source of Blood data Hemoglobi 12.2 - g/dL Low No Jul 14 n 16.2 informati 2016 5:30 [Mass/vol on in AM ume] in source Blood data Lymphocyt 0.7 - 4.5 K/mm3 Normal No Jul 14 es informati 2016 5:30 [#/volume on in AM ] in source Unspecifi data ed specimen by Automated count Lymphocyt 10 - 50.0 % Normal No Jul 14 informati 2016 5:30 [#/volume on in AM ] in source Unspecifi data ed specimen by Automated count Erythrocy 27 - 31.2 pg Normal No Jul 14 te mean informati 2016 5:30 corpuscul on in AM ar source hemoglobi data n [Entitic mass] Erythrocy 31.8 - g/dl Normal No Jul 14 te mean 35.4 informati 2016 5:30 corpuscul on in AM ar source hemoglobi data n concentra tion [Mass/vol ume] by Automated count Erythrocy 82.2 - fl Normal Jul 14 te mean 97.8 informati 2016 5:30 corpuscul on in AM ar volume source [Entitic data volume] by Automated count Monocytes 0.1 - 1.0 K/mm3 Normal No Jul 14 informati 2016 5:30 [#/volume on in AM ] in source Blood by data Automated count Monocytes 1.7 - 9.3 % Normal No Jul 14 /100 informati 2016 5:30 leukocyte on in AM s in source Blood by data Automated count Platelet 7.4 - fl Normal No Jul 14 mean 10.4 informati 2016 5:30 volume on in AM [Entitic source volume] data in Blood by Automated count Platelets 142 - 424 K/mm3 Normal No Jul 14 informati 2016 5:30 [#/volume on in AM ] in source Blood data Erythrocy 4.2 - 5.4 M/mm3 Low No Jul 14 dariusz informati 2016 5:30 [#/volume on in AM ] in source Amniotic data fluid Erythrocy 11.5 - % Normal No Jul 14 te 17.5 informati 2016 5:30 distribut on in AM ion width source [Entitic data volume] by Automated count Leukocyte 4.8 - K/MM3 High No Jul 14 s 10.8 informati 2016 5:30 [#/volume on in AM ] in source Blood data Differential panel, method unspecified - Observa Value Referen Units Interpr Notes Date ti ce etation Range Neutrophi 0 - 8 % Normal Jul 14 ls.band informati 2016 5:30 form/100 on in AM leukocyte source s in data Blood by Automated count LYMPH 13 10 - 50 % Normal Jul 142016 tion in 5:30 AM source data Monocytes 2 - 9 % Normal No Jul 14 /100 informati 2016 5:30 leukocyte on in AM s in source Blood by data Automated count Platele NORMAL No No No Jul 14 ts informa informa informa inform2016 [Presen tion in tion in tion in tion in 5:30 AM ce] in source source source source Blood data data data data by Light microsc opy Neutrophi 42 - 76 % High No Jul 14 ls informati 2016 5:30 [#/volume on in AM ] in source Blood by data Automated count Cells No #CELLS No Jul 14 Counted informati informati informati 2016 5:30 Total [#] on in on in on in AM in Blood source source source data data data Troponin I.cardiac [Mass/volume] in Serum or [...] Interpr Notes Date tion ce etation Range Basophils 0 - 0.2 K/MM3 Normal No Jul 13 informati 2016 7:55 [#/volume on in PM ] in source Blood by data Automated count Basophils 0.1 - 2.0 % Normal No Jul 13 /100 informati 2017 7:55 leukocyte on in PM s in source Blood by data Automated count Eosinophi 0.0 - 0.4 K/mm3 Normal Jul 13 ls informati 2016 7:55 [#/volume on in PM ] in source Blood by data Automated count Eosinophi 0.1 - % Normal Jul 13 ls/100 12.0 informati 2016 7:55 leukocyte on in PM s in source Blood by data Automated count Granulocy 1.8 - 7.8 K/mm3 High No Jul 13 dariusz informati 2016 7:55 [#/volume on in PM ] in source Blood by data Automated count Granulocy 37.0 - % Normal No Jul 13 dariusz/100 80.0 informati 2016 7:55 leukocyte on in PM s in source Blood by data Automated count Hematocri 37.0 - % Low Jul 13 t [Volume 47.0 informati 2016 7:55 on in PM Fraction] source of Blood data Hemoglobi 12.2 - g/dL Low Jul 13 n 16.2 informati 2016 7:55 [Mass/vol on in PM ume] in source Blood data Lymphocyt 0.7 - 4.5 K/mm3 Normal No Jul 13 es informati 2016 7:55 [#/volume on in PM ] in source Unspecifi data ed specimen by Automated count Lymphocyt 10 - 50.0 % Normal Jul 13 es informati 2016 7:55 [#/volume on in PM ] in source Unspecifi data ed specimen by Automated count Erythrocy 27 - 31.2 pg Normal No Jul 13 te mean informati 2016 7:55 corpuscul on in PM ar source hemoglobi data n [Entitic mass] Erythrocy 31.8 - g/dl Normal Jul 13 te mean 35.4 informati 2016 7:55 corpuscul on in PM ar source hemoglobi data n concentra tion [Mass/vol ume] by Automated count Erythrocy 82.2 - fl Normal Jul 13 te mean 97.8 informati 2016 7:55 corpuscul on in PM ar volume source [Entitic data volume] by Automated count Monocytes 0.1 - 1.0 K/mm3 Normal No Jul 13 informati 2016 7:55 [#/volume on in PM ] in source Blood by data Automated count Monocytes 1.7 - 9.3 % Normal No Jul 13 /100 informati 2016 7:55 leukocyte on in PM s in source Blood by data Automated count Platelet 7.4 - fl Normal Jul 13 mean 10.4 informati 2016 7:55 volume on in PM [Entitic source volume] data in Blood by Automated count Platelets 142 - 424 K/mm3 Normal No Jul 13 informati 2016 7:55 [#/volume on in PM ] in source Blood data Erythrocy 4.2 - 5.4 M/mm3 Normal No Jul 13 dariusz informati 2016 7:55 [#/volume on in PM ] in source Amniotic data fluid Erythrocy 11.5 - % Normal Jul 13 te 17.5 informati 2016 7:55 distribut on in PM ion width source [Entitic data volume] by Automated count Leukocyte 4.8 - K/MM3 High No Jul 13 s 10.8 informati 2016 7:55 [#/volume on in PM ] in source Blood data Basic metabolic panel in Blood Observa Value Referen Units Interpr Notes Date tion ce etation Range Urea 7 - 18 mg/dL High No Apr 15 nitrogen informati 2016 [Mass/vol on in 12:35 PM ume] in source Serum or data Plasma Calcium 8.5 - mg/dL Normal No Apr 15 [Mass/vol 10.1 informati 2016 ume] in on in 12:35 PM Serum or source Plasma data Chloride 98 - 107 mmoL/L Normal No Sep 15 [Moles/vo informati 2017 lume] in on in 12:35 PM Serum or source Plasma data Carbon 21.0 - mmoL/L Normal No Apr 15 dioxide, 32.0 informati 2016 total on in 12:35 PM [Moles/vo source [...]
--- OUTSIDE RECORDS SUMMARY | 2017-07-19 11:47 | External Medical Summary Rpt ---
Author Author DULCE MARIACRICKET Cohen, [employer] Address Unknown Phone Unavailable [...]
[2017-07-19 11:49] LABS: HEMOGLOBIN 9.3 g/dL (12.2-16.2); LYMPH # 3.5 K/mm3 (0.7-4.5); LYMPH % 35.9 % (10-50.0)
[2017-07-19] MEDS ORDERED: TERAZOSIN PO (12:02)
[2017-07-19] MEDS ORDERED: LISINOPRIL 20MG20 MG PO (12:03)
[2017-07-19] MEDS ORDERED: HYDRALAZINE10 MG PO (12:03)
[2017-07-19] MEDS ORDERED: FUROSEMIDE40 MG PO (12:03)
[2017-07-19 13:47] VITALS: BP 140/95
--- NOTE | 2017-07-19 22:15 | RADIOLOGY REPORT PS360 ---
CHEST(2 VIEWS-NOT PORTABLE) Ordering Physician: Can Chambers MD Patient Age: 81 years: Female HISTORY: SOA AFTER STOPPING LASIX TECHNIQUE: PA and lateral chest COMPARISON :04/30/2016. And 04/05/2015 PA and lateral CXR FINDINGS Been median sternotomy and CABG. Chronic CHF again evident with cephalization and mild vascular congestion again noted question perhaps very slightly more evident today. Versus 04/30/2016. And 04/05/2015. These features superimposed upon a background of chronic lung changes. Cardiomegaly similar to slightly more pronounced as well. Blunting CP angles similar.Scant fluid is seen along the fissures slightly more evident. . Chest wall T-spine unchanged. Mild old compression fracture lower T-spine I believe T11 unchanged since 2014 IMPRESSION: Chronic CHF similar to perhaps very slightly more evident than previous study.. Cephalization & vascular congestion perhaps very very slightly more pronounced today. Prominent cardiomegaly. Sternotomy. CABG.
== END 2017-07-19 13:48 | disposition home or self-care (01) ==
LOC: ER 11:21
PROVIDERS: Emergency Medicine
DX: I50.43 Acute on chronic combined systolic (congestive) and diastolic (congestive) heart failure (principal); I48.2 Chronic atrial fibrillation; D64.9 Anemia, unspecified; N28.9 Disorder of kidney and ureter, unspecified; I10 Essential (primary) hypertension; I25.10 Atherosclerotic heart disease of native coronary artery without angina pectoris; Z88.0 Allergy status to penicillin; E78.5 Hyperlipidemia, unspecified; E03.9 Hypothyroidism, unspecified